=== PATIENT | male | born 1950 | race Caucasian/White ===

== ENCOUNTER → 2023-07-02 06:36 | Outpatient (REF) | payer MEDICARE, OTHER, SELFPAY ==
[2023-07-02 10:22] LABS: INR 2.12; PT 23.6 Sec (11.4-14.6)
== END ==
LOC: HWLAB 06:36
PROVIDERS: ATTENDING PHYSICIAN Internal Medicine Cardiovascular Disease; FAMILY PHYSICIAN Internal Medicine
DX: I48.0 Paroxysmal atrial fibrillation (principal)
CPT/HCPCS: 36415; 85610

== ENCOUNTER → 2023-07-30 06:14 | Outpatient (REF) | payer MEDICARE, OTHER, SELFPAY ==
[2023-07-30 09:21] LABS: INR 2.51
== END ==
LOC: HWLAB 06:14
PROVIDERS: ATTENDING PHYSICIAN Internal Medicine Cardiovascular Disease; FAMILY PHYSICIAN Internal Medicine
DX: I48.0 Paroxysmal atrial fibrillation (principal)
CPT/HCPCS: 36415; 85610

== ENCOUNTER → 2023-08-27 06:22 | Outpatient (REF) | payer MEDICARE, OTHER, SELFPAY ==
[2023-08-27 09:43] LABS: INR 1.95; PT 22.1 Sec (11.4-14.6)
== END ==
LOC: HWLAB 06:22
PROVIDERS: ATTENDING PHYSICIAN Internal Medicine Cardiovascular Disease; FAMILY PHYSICIAN Internal Medicine
DX: I48.0 Paroxysmal atrial fibrillation (principal)
CPT/HCPCS: 36415; 85610

== ENCOUNTER → 2023-09-26 09:27 | Outpatient (REF) | payer MEDICARE, OTHER, SELFPAY | LOC: HWLAB 09:27 | PROVIDERS: ATTENDING PHYSICIAN Internal Medicine Cardiovascular Disease; FAMILY PHYSICIAN Internal Medicine | DX: I48.0 Paroxysmal atrial fibrillation (principal) | CPT/HCPCS: 36415; 85610 ==

== ENCOUNTER → 2023-10-23 06:24 | Outpatient (REF) | payer MEDICARE, OTHER, SELFPAY ==
[2023-10-23 09:20] LABS: PT 28.2 Sec (11.4-14.6)
== END ==
LOC: HWLAB 06:24
PROVIDERS: ATTENDING PHYSICIAN Internal Medicine Cardiovascular Disease; FAMILY PHYSICIAN Internal Medicine
DX: I48.0 Paroxysmal atrial fibrillation (principal)
CPT/HCPCS: 36415; 85610

== ENCOUNTER → 2023-11-20 06:40 | Outpatient (REF) | payer MEDICARE, OTHER, SELFPAY ==
[2023-11-20 09:32] LABS: INR 2.39; PT 26.4 Sec (11.4-14.6)
== END ==
LOC: HWLAB 06:40
PROVIDERS: ATTENDING PHYSICIAN Internal Medicine Cardiovascular Disease; FAMILY PHYSICIAN Internal Medicine
DX: I48.0 Paroxysmal atrial fibrillation (principal)
CPT/HCPCS: 36415; 85610

== ENCOUNTER → 2023-12-19 06:13 | Outpatient (REF) | payer MEDICARE, OTHER, SELFPAY ==
[2023-12-19 10:36] LABS: INR 2.09; PT 23.7 Sec (11.4-14.6)
== END ==
LOC: HWLAB 06:13
PROVIDERS: ATTENDING PHYSICIAN Internal Medicine Cardiovascular Disease; FAMILY PHYSICIAN Internal Medicine
DX: I48.0 Paroxysmal atrial fibrillation (principal)
CPT/HCPCS: 36415; 85610

== ENCOUNTER → 2024-01-15 07:31 | Outpatient (REF) | payer MEDICARE, OTHER, SELFPAY ==
[2024-01-15 09:49] LABS: INR 2.28; PT 25.4 Sec (11.4-14.6)
== END ==
LOC: HWLAB 07:31
PROVIDERS: ATTENDING PHYSICIAN Internal Medicine Cardiovascular Disease; FAMILY PHYSICIAN Internal Medicine
DX: I48.0 Paroxysmal atrial fibrillation (principal)
CPT/HCPCS: 36415; 85610

== ENCOUNTER → 2024-02-12 06:13 | Outpatient (REF) | payer MEDICARE, OTHER, SELFPAY ==
[2024-02-12 09:40] LABS: INR 1.58
== END ==
LOC: HWLAB 06:13
PROVIDERS: ATTENDING PHYSICIAN Internal Medicine Cardiovascular Disease; FAMILY PHYSICIAN Internal Medicine
DX: I48.0 Paroxysmal atrial fibrillation (principal)
CPT/HCPCS: 36415; 85610

== ENCOUNTER → 2024-02-18 09:01 | Outpatient (REF) | payer MEDICARE, OTHER, SELFPAY ==
[2024-02-18 11:46] LABS: INR 1.93; PT 21.9 Sec (11.4-14.6)
== END ==
LOC: HWLAB 09:01
PROVIDERS: ATTENDING PHYSICIAN Internal Medicine Cardiovascular Disease; FAMILY PHYSICIAN Internal Medicine
DX: I48.0 Paroxysmal atrial fibrillation (principal)
CPT/HCPCS: 36415; 85610

== ENCOUNTER → 2024-03-17 07:02 | Outpatient (REF) | payer MEDICARE, OTHER, SELFPAY ==
[2024-03-17 09:56] LABS: Hemoglobin 14.4 g/dL (13.0-18.0); Mean Corp Hgb Conc. 34.3 g/dL (33.0-37.0); Mean Corpuscular Hgb 31.9 pg (27.0-31.0); Mean Corpuscular Volume 93.1 fL (80.0-94.0); Mean Platelet Volume 10.9 fL (7.4-10.4); Platelet Count 191 10^3/uL (130-400); Red Blood Cell Count 4.51 10^6/uL (4.70-6.10); Red Cell Dist. Width 13.2 % (11.5-14.5); White Blood Cell Count 6.1 10^3/uL (4.8-10.8)
[2024-03-17 10:06] LABS: Blood Urea Nitrogen 24 mg/dl (9-20); Calcium 9.2 mg/dl (8.4-10.2); Carbon Dioxide 19 mmol/L (22-30); Chloride 109 mmol/L (98-107); Glucose 124 mg/dl (70-99); HDL Cholesterol 40 mg/dl; LDL Cholesterol, Calculated 37 mg/dl; Potassium 4.7 mmol/L (3.5-5.1); Sodium 142 mmol/L (135-145); Total Cholesterol 108 mg/dl (50-199); Triglyceride 155 mg/dl (10-149); Very Low Density Lipoprotein 31 mg/dl (0-30); eGFR 53.07
[2024-03-17 10:13] LABS: INR 2.08; PT 23.2 Sec (11.4-14.6)
== END ==
LOC: HWLAB 07:02
PROVIDERS: ATTENDING PHYSICIAN Internal Medicine Cardiovascular Disease; FAMILY PHYSICIAN Internal Medicine
DX: I48.0 Paroxysmal atrial fibrillation (principal); E78.2 Mixed hyperlipidemia
CPT/HCPCS: 36415; 80048; 80061; 85027; 85610

== ENCOUNTER → 2024-03-31 07:30 | Outpatient (REF) | payer MEDICARE, OTHER, SELFPAY ==
--- NOTE | 2024-03-31 11:27 | CARDSERVLU ---
Echocardiogram with Lumason completed after protocol screening completed. Allergies verified.
Patent IV site: __L forearm___
IV site flushed with 0.9% NaCl pre and post administration.
Diluted bolus method utilized to enhance visualization of ventricular fernandez.
Total volume given: __3__ mL
Patient tolerated all procedures well without complications.
== END ==
LOC: RCS 07:30
PROVIDERS: ATTENDING PHYSICIAN Internal Medicine Cardiovascular Disease; FAMILY PHYSICIAN Internal Medicine
DX: I48.0 Paroxysmal atrial fibrillation (principal); I25.10 Atherosclerotic heart disease of native coronary artery without angina pectoris; I10 Essential (primary) hypertension
CPT/HCPCS: 93306; Q9950

== ENCOUNTER → 2024-04-15 06:08 | Outpatient (REF) | payer MEDICARE, OTHER, SELFPAY ==
[2024-04-15 09:52] LABS: INR 1.65; PT 20.1 Sec (11.4-14.6)
[2024-04-15 09:55] LABS: ALT (SGPT) 19 U/L (0-50); AST (SGOT) 20 U/L (17-59); Albumin 4.2 g/dl (3.5-5.0); Alkaline Phosphatase 61 U/L (38-126); Blood Urea Nitrogen 23 mg/dl (9-20); Calcium 9.1 mg/dl (8.4-10.2); Carbon Dioxide 20 mmol/L (22-30); Chloride 109 mmol/L (98-107); Glucose 131 mg/dl (70-99); HDL Cholesterol 37 mg/dl; LDL Cholesterol, Calculated 41 mg/dl; Potassium 4.6 mmol/L (3.5-5.1); Sodium 143 mmol/L (135-145); Total Bilirubin 0.9 mg/dl (0.2-1.3); Total Cholesterol 109 mg/dl (50-199); Triglyceride 157 mg/dl (10-149); Very Low Density Lipoprotein 31 mg/dl (0-30); eGFR > 60.00
[2024-04-15 10:15] LABS: PSA, Total - Screen 0.33 ng/ml (0.0-4.0); TSH 1.96 uIU/ml (0.47-4.68)
[2024-04-15 10:17] LABS: Urine Albumin Negative (Neg - Trace); Urine Bilirubin Negative (Negative); Urine Character Very Cloudy (Clear); Urine Color Yellow; Urine Glucose Negative (Negative); Urine Ketone Negative (Negative); Urine Leukocyte Negative (Negative); Urine Nitrite Negative (Negative); Urine Occult Blood Negative (Negative); Urine Specific Gravity 1.025 (<1.030); Urine Urobilinogen Negative (Neg - 1+)
[2024-04-15 11:25] LABS: Microalbumin, Random Urine 3.7 mg/dl (0.6-1.7)
[2024-04-15 11:27] LABS: Microalbumin/creatinine Ratio 19.3 mg/g
[2024-04-15 14:42] LABS: Glycohemoglobin (HgbA1c) 6.3 % (4.0-5.6)
== END ==
LOC: HWLAB 06:08
PROVIDERS: ATTENDING PHYSICIAN Internal Medicine Cardiovascular Disease; FAMILY PHYSICIAN Internal Medicine
DX: I48.0 Paroxysmal atrial fibrillation (principal); E11.9 Type 2 diabetes mellitus without complications; E78.2 Mixed hyperlipidemia; I10 Essential (primary) hypertension; N40.1 Benign prostatic hyperplasia with lower urinary tract symptoms
CPT/HCPCS: 36415; 80053; 80061; 81003; 82043; 82570; 83036; 84443; 85610; G0103

== ENCOUNTER → 2024-04-21 06:29 | Outpatient (REF) | payer MEDICARE, OTHER, SELFPAY ==
[2024-04-21 09:53] LABS: PT 26.2 Sec (11.4-14.6)
== END ==
LOC: HWLAB 06:29
PROVIDERS: ATTENDING PHYSICIAN Internal Medicine Cardiovascular Disease; FAMILY PHYSICIAN Internal Medicine
DX: I48.0 Paroxysmal atrial fibrillation (principal)
CPT/HCPCS: 36415; 85610

== ENCOUNTER → 2024-04-28 06:17 | Outpatient (REF) | payer MEDICARE, OTHER, SELFPAY ==
[2024-04-28 09:53] LABS: INR 2.86; PT 29.9 Sec (11.4-14.6)
== END ==
LOC: HWLAB 06:17
PROVIDERS: ATTENDING PHYSICIAN Internal Medicine Cardiovascular Disease; FAMILY PHYSICIAN Internal Medicine
DX: I48.0 Paroxysmal atrial fibrillation (principal)
CPT/HCPCS: 36415; 85610

== ENCOUNTER → 2024-05-06 06:35 | Outpatient (REF) | payer MEDICARE, OTHER, SELFPAY ==
[2024-05-06 10:00] LABS: INR 2.61; PT 28.4 Sec (11.4-14.6)
== END ==
LOC: HWLAB 06:35
PROVIDERS: ATTENDING PHYSICIAN Internal Medicine Cardiovascular Disease; FAMILY PHYSICIAN Internal Medicine
DX: I48.0 Paroxysmal atrial fibrillation (principal)
CPT/HCPCS: 36415; 85610

== ENCOUNTER → 2024-05-12 06:27 | Outpatient (REF) | payer MEDICARE, OTHER, SELFPAY ==
[2024-05-12 09:38] LABS: INR 2.91; PT 30.3 Sec (11.4-14.6)
== END ==
LOC: HWLAB 06:27
PROVIDERS: ATTENDING PHYSICIAN Internal Medicine Cardiovascular Disease; FAMILY PHYSICIAN Internal Medicine
DX: I48.0 Paroxysmal atrial fibrillation (principal)
CPT/HCPCS: 36415; 85610

== ENCOUNTER 2024-05-15 12:56 | Inpatient (IN) | payer MEDICARE, OTHER, SELFPAY ==
[2024-05-15] VITALS (12 sets, daily range): BP systolic 99–186; BP diastolic 64–104; BMI 38.0
[2024-05-15 06:58] LABS: % Basophils 0.4 % (0-2); % Eosinophils 1.6 % (0-6); % Immature Granulocytes 0.5 % (0-0.5); % Lymphocytes 16.3 % (20.5-51.1); % Monocytes 6.6 % (1.7-9.3); % Neutrophils 74.6 % (42.2-75.2); Absolute Eosinophils 0.1 10^3/uL (0-0.7); Absolute Lymphocytes 1.4 10^3/uL (1.2-3.4); Absolute Monocytes 0.6 10^3/uL (0.1-0.6); Absolute Neutrophils 6.3 10^3/uL (1.4-6.5); Hematocrit 40.6 % (39.0-52.0); Hemoglobin 13.6 g/dL (13.0-18.0); Mean Corp Hgb Conc. 33.5 g/dL (33.0-37.0); Mean Corpuscular Hgb 30.8 pg (27.0-31.0); Mean Corpuscular Volume 92.1 fL (80.0-94.0); Mean Platelet Volume 10.4 fL (7.4-10.4); Nucleated Red Blood Cells % 0 % (-); Platelet Count 188 10^3/uL (130-400); Red Blood Cell Count 4.41 10^6/uL (4.70-6.10); Red Cell Dist. Width 13.1 % (11.5-14.5); White Blood Cell Count 8.4 10^3/uL (4.8-10.8)
[2024-05-15 07:11] LABS: INR 2.65; PT 28.7 Sec (11.4-14.6)
[2024-05-15 07:14] LABS: ALT (SGPT) 22 U/L (0-50); AST (SGOT) 22 U/L (17-59); Alkaline Phosphatase 80 U/L (38-126); Blood Urea Nitrogen 31 mg/dl (9-20); Calcium 8.8 mg/dl (8.4-10.2); Carbon Dioxide 17 mmol/L (22-30); Chloride 107 mmol/L (98-107); Estimated Creatinine Clearance 71 ml/min; Glucose 186 mg/dl (70-99); Sodium 135 mmol/L (135-145); Total Bilirubin 0.7 mg/dl (0.2-1.3); Total Protein 6.7 g/dl (6.3-8.2); eGFR > 60.00
[2024-05-15] MEDS: DILAUDID 0.5 MG IV ×2 (07:25→08:07)
--- NOTE | 2024-05-15 07:27 | ED.GENMED ---
History of Present Illness
General
Chief Complaint: Fall
Source: patient
Time Seen by Provider: 05/15/24 07:12
History of Present Illness
History of Present Illness:
73-year-old male with past medical history of CAD status post previous TN, hypertension, hyperlipidemia, atrial fibrillation, xqa-ykdvtka-ethatlqzh diabetes presenting to the emergency department via EMS after he reportedly fell down at least 1 step
while coming downstairs to begin his morning routine approximately 30 minutes prior to arrival to the emergency department. Patient states that he fell onto his left side and is now having moderate to severe left-sided lateral hip/proximal femur
pain with an inability to ambulate or move the proximal left leg. Patient states that he did not hit his head upon falling. No other extremity related injuries sustained. Patient unsure about his last INR. Prior to falling patient denies any
headache, vision changes, focal weakness or numbness, chest pain, shortness of breath, lightheadedness or dizziness.
Past History
Past History
ED Past Medical History: Arrthythmia (Atrial fibrillation, has been ablated.), CAD, Cancer (Skin cancer), GERD, HTN, Hypercholesterolemia, NIDDM, TN and Other (Diverticulosis, diverticulitis, skin cancer)
ED Past Surgical History: Bowel resection (Sigmoid resection), Cardiac, Cholecystectomy, Orthopedic (Lateral knee arthroscopies, and multiple skin cancer lesions removed) and Other (2 hernia procedures)
Social History
Tobacco: Non-smoker
Alcohol: Occasional
Drug: None
Personal:
Living: with family
Employment: Employed
Family History
Family History: Other (Noncontributory)
Review of Systems
Review of Systems
All Other Systems: ROS reviewed and negative except as documented in HPI and ROS
Phy Exam
Physical Exam
Physical Exam:
GENERAL: Alert , patient appears quite uncomfortable and has significant pain with any attempted movement of the left lower extremity
HEAD: NCAT
EYE: clear conjunctiva
NECK: Supple
ENT: o/p clr, mmm.
CARDIAC: Regular rate and rhythm .
LUNGS: Clear breath sounds bilaterally, no acute respiratory distress, no wheezes/rales/rhonchi, no chest wall ttp
ABDOMEN: Soft, without focal tenderness, no r/g, no cvat
NEUROLOGICAL: Alert and oriented
SKIN: Warm and dry, skin intact.
MUSCULOSKELETAL: LLE: slightly shortened compared to the RLE. No ecchymosis, abrasions/lacerations. No ttp to foot/ankle/lower leg/knee. There is moderate ttp over proximal lateral femur. Unable to assess ROM 2/2 pain. Easily palpable pedal/tibial
pulses b/l
PSYCH: Normal and appropriate interaction.
Scores
Heart Failure Risk
Heart Failure Risk Score: Not Applicable
Heart Score for Chest Pain Patients
STEMI patient?: Not applicable
Withdrawal Assessment of Alcohol
Withdrawal Assessment Completed?: Not applicable
Course
Orders/Labs/Results
Orders:
Orders
05/15/24 06:54
Complete Blood Count/With Diff Urgent
Comprehensive Metabolic Panel Urgent
PT/INR [Prothrombin Time] Urgent
05/15/24 07:22
CT Head W/o Iv Contrast Urgent
Comment:
Reason For Exam: fall, on coumadin
HYDROmorphone [Dilaudid] 0.5 mg IV NOW STA
CR Hip - LT w/wo Pel 2-3 Vw* Urgent
Comment:
Reason For Exam: fall, pain lateral left proximal femur
Include a pelvis x-ray?: Yes
05/15/24 07:23
HYDROmorphone [Dilaudid] 0.5 mg .ROUTE .STK-MED ONE
05/15/24 08:07
HYDROmorphone [Dilaudid] 0.5 mg IV NOW STA
05/15/24 08:45
CT Pelvis W/o Iv Contrast Urgent
Comment:
Reason For Exam: concern for left hip fx
05/15/24 09:13
Fentanyl Citrate/Pf [Sublimaze] 50 mcg IV NOW STA
05/15/24 12:12
Fentanyl Citrate/Pf [Sublimaze] 50 mcg IV NOW STA
Abnormal Lab Results
05/15/24
06:54
RBC 4.41 L 10^6/uL
(4.70-6.10)
Lymphocytes % 16.3 L %
(20.5-51.1)
PT 28.7 H Sec
(11.4-14.6)
Carbon Dioxide 17 L mmol/L
(22-30)
BUN 31 H mg/dl
(9-20)
Glucose 186 H mg/dl
(70-99)
05/15/24 06:54
05/15/24 06:54
Vital Signs
Initial and Last Documented VS:
Initial Vital Signs
Temp Pulse Resp BP Pulse Ox
97.7 F 61 21 147/80 94
05/15/24 06:41 05/15/24 06:41 05/15/24 06:41 05/15/24 06:41 05/15/24 06:41
Last Documented Vital Signs
Temp Pulse Resp BP Pulse Ox
97.7 F 68 21 162/82 96
05/15/24 06:41 05/15/24 07:30 05/15/24 07:30 05/15/24 10:00 05/15/24 10:00
MDM/Problems Addressed
Differential Diagnosis Includes:
accidental fall, hip/pelvic fracture, sprain/contusion, ICH, concussion
MDM/Problems Addressed:
73-year-old male presenting to the emergency department for evaluation via EMS after he fell down at least 1 stair resulting in significant left hip injury/pain. Significant concern for hip or pelvic fracture. Patient did receive 50 mcg of
fentanyl and route to the hospital. Still with 8 or 9 out of 10 pain. Will treat with an additional dose of Dilaudid here. X-ray of the hip and pelvis ordered. Given patient is on Coumadin also ordered a CT of the head. Will check labs
including PT/INR. Anticipate admission.
Chronic conditions affecting care: Arrhythmia
*Radiology
Radiology exam reviewed: preliminary read by ED provider (? impacted femoral neck fx) and radiology read reviewed
*Pulse Oximetry
Patient hypoxic: no
*Website Admin Interpretation
Rate: normal
Rhythm: sinus
*Critical Care Note
Total Time (30-74mins, 75-104mins- exclusive of procedures): Not Applicable
Patient Management
Discussion with other providers: Hospitalist and [employer] Hand
Escalation/DeEscalation of care consider admission/obs:
Patient's x-ray showed a questionable left femoral neck fracture. Given the degree of pain he was in we have high suspicion that there is in fact a fracture. Added on a CT of the pelvis to further evaluate. CT did show an acute impacted femoral
neck fracture. I notified on-call orthopedic surgeon as well as hospitalist team. Hospitalist team to admit with orthopedist in consult.
ED Attending Note
-
Portions of this chart may have been created with voice recognition software.� Occasional wrong word or��sound alike� substitutions may have occurred due to the inherent limitations of voice recognition software.
Discharge Plan
Departure
Patient Disposition: Admit
Date of Disposition: 05/15/24
Time of Disposition: 10:41
Presentation/result/management discussed w/ accepting MD/DO: Hospitalist
Discharge Problem:
Fracture of femoral neck, left
Prescriptions:
No Action
latanoprost 1 DROP drops
1 drp BOTH EYES HS
finasteride 5 MG tablet
5 mg PO DAILY
metformin 500 MG tablet
500 mg PO BID Qty: 0 0RF
tamsulosin 0.4 mg Capsule
0.4 mg PO QPM
atorvastatin 40 mg Tablet
40 mg PO QPM Qty: 30 2RF
warfarin 5 mg Tablet
5 mg PO HS
dorzolamide-timolol 22.3-6.8 mg/mL drops
1 drp LEFT EYE BID
diltiazem HCl [Matzim LA] 180 mg Tablet Extended Release 24 Hr
180 mg PO DAILY
Referrals:
Jorge Floyd DO [Family Provider] -
Interventions
Interventions:
*Risk Screen - Suicide Last Done: 05/15/24 06:41
*General Assessment Last Done: 05/15/24 06:41
*Neglect/Abuse Screening Last Done: 05/15/24 06:41
ED- Fall Risk Assessment Last Done: 05/15/24 06:55
*ED COVID-19 Vaccine History Last Done: 05/15/24 07:16
ED-Musculoskeletal Assessment Last Done: 05/15/24 06:50
ED- Neurological Assessment Last Done: 05/15/24 06:50
ED-Skin Assessment Last Done: 05/15/24 06:50
Discharge Date and Time
Print Language: SIER[place] LEONEAN
[2024-05-15] MEDS: SUBLIMAZE 50 MCG IV ×2 (09:20→12:18)
[2024-05-15] MEDS: MORPHINE SULFATE 2 MG IV ×2 (16:10→23:35)
--- NOTE | 2024-05-15 16:16 | HPS.HSE ---
Addendum entered and electronically signed by Donovan Ceja MD 05/15/24 16:27:
Allergies
Allergy/AdvReac Type Severity Reaction Status Date / Time
No Known Drug Allergies Allergy - Verified 03/16/22 06:22
Home Medications
finasteride 5 mg tablet 5 mg PO DAILY Urinary issue 04/18/20
latanoprost 0.005 % eye drops 1 drp BOTH EYES HS Eye condition 04/18/20
metformin 500 mg tablet 500 mg PO BID Diabetes #0 tabs 01/24/22
tamsulosin 0.4 mg capsule 0.4 mg PO QPM Urinary issue 02/13/22
atorvastatin 40 mg tablet 40 mg PO QPM High cholesterol #30 tabs 02/26/22
warfarin 5 mg tablet 5 mg PO HS Blood clot prevention/tx 07/13/22
diltiazem HCl 180 mg tablet,extended release 24 hr (Matzim LA) 180 mg PO DAILY Arrhythmia 05/15/24
dorzolamide 22.3 mg-timolol 6.8 mg/mL eye drops 1 drp LEFT EYE BID Eye Condition 05/15/24
Original Note:
Family Physician
-
Family Physician: Jorge Floyd
Chief Complaint
-
Fall with subsequent left femoral neck fracture
History of Present Illness
73-year-old male with past medical history of CAD status post CABG, atrial fibrillation, ablated, skin cancer, GERD, hypertension, hyperlipidemia, history diverticulosis, eur-dgtipdk-latdkvuyg diabetes presents after trip and fall walking
downstairs. Patient fell down at least 1 step while walking down the stairs during his morning routine. Patient felt his left side, with subsequent pain to the left hip. Was unable to ambulate thereafter. No head strike. Remembers episode, no
history of lightheadedness, dizziness, loss of consciousness, chest pain. Denies dysuria, hematuria, URI symptoms. Remains afebrile, mildly hypertensive 139/92, pulse 79, respiratory rate 18, sats are 96% on room air. Head CT unremarkable, pelvic
CT with acute nondisplaced fracture of the left femoral neck with mild impaction. Possible acute diverticulitis although asymptomatic. INR noted to be 2.65, Coumadin.
Medical History
Past Medical History
Past Medical History: Reports Arrhythmia (Atrial fibrillation), CAD, CHF, GERD, HTN, Hypercholesterolemia, NIDDM, Renal Failure and Other
Additional Past Medical History:
Small bowel obstructions
Past Surgical History: Reports Cardiac (CABG performed by Dr. Tapia February 21) and Other (Small bowel obstructions)
Social History
Tobacco: Non-smoker
Alcohol: None
Drug: None
Personal:
Living: With Family
Family History
Family History: Not pertinent
Allergies / Home Medications
Allergies reflects when Allergies were last updated in [employer].
Home Medications with original date entered in [employer]
Allergy/Medication List:
none
Allergies
Allergy/AdvReac Type Severity Reaction Status Date / Time
No Known Drug Allergies Allergy - Verified 03/16/22 06:22
Home Medications
finasteride 5 mg tablet 5 mg PO DAILY Urinary issue 04/18/20
latanoprost 0.005 % eye drops 1 drp BOTH EYES HS Eye condition 04/18/20
metformin 500 mg tablet 500 mg PO BID Diabetes #0 tabs 01/24/22
tamsulosin 0.4 mg capsule 0.4 mg PO DAILY Urinary issue 02/13/22
aspirin 81 mg chewable tablet 81 mg PO DAILY Heart disease/condition #30 tabs 02/26/22
atorvastatin 40 mg tablet 40 mg PO QPM High cholesterol #30 tabs 02/26/22
carvedilol 12.5 mg tablet 6.25 mg PO BID 30 days #30 tabs 03/19/22
amiodarone 200 mg tablet (Pacerone) 200 mg PO DAILY Arrhythmia 07/13/22
warfarin 5 mg tablet 2.5 mg PO SUTUTHSA 07/13/22
warfarin 5 mg tablet 5 mg PO MOWEFR 07/13/22
Review of Systems
-
A 12 point ROS was completed and negative except as noted: Yes
Physical Exam
Vital Signs
Vital Signs
Temp Pulse Resp BP Pulse Ox
97.7 F 79 18 179/92 96
05/15/24 06:41 05/15/24 12:22 05/15/24 12:22 05/15/24 15:00 05/15/24 15:00
Physical Exam
General: Well Developed, Well Nourished and No Apparent Distress
HEENT: NormoCephalic
Respiratory: Clear
Cardiac: S1/S2 and Regular Rhythm
GI: Soft and Non Tender
Musculoskeletal: No Clubbing and Other (slightly shortened compared to the RLE. No ecchymosis, abrasions/lacerations. No ttp to foot/ankle/lower leg/knee. There is moderate ttp over proximal lateral femur. ; B/l pulses present)
Skin: Warm
Neuro: Awake, Alert, Oriented and AO x 3
Hematologic/Lymphatic: No Lymphadenopathy
Psych: Calm
Laboratory Results
-
05/15/24 06:54
05/15/24 06:54
Laboratory Results
PT 28.7 Sec (11.4-14.6) H 05/15/24 06:54
INR 2.65 05/15/24 06:54
Total Bilirubin 0.7 mg/dl (0.2-1.3) 05/15/24 06:54
AST 22 U/L (17-59) 05/15/24 06:54
ALT 22 U/L (0-50) 05/15/24 06:54
Alkaline Phosphatase 80 U/L (38-126) 05/15/24 06:54
Data Reviewed
-
Diagnostic Radiology: Report Reviewed by me
CT Scan: Report Reviewed by me
Lab Data: Labs Reviewed by me
Impression/Plan
-
IMPRESSION:
73-year-old male with past medical history of CAD status post CABG, atrial fibrillation, ablated, skin cancer, GERD, hypertension, hyperlipidemia, history diverticulosis, aml-nqtvyqt-cbqbbizfo diabetes presents after trip and fall walking downstairs
resulting in acute nondisplaced fracture of the left femoral neck with mild impaction.
PLAN:
#Acute nondisplaced fracture of the left femoral neck with mild impaction.
-Ortho consulted, plan for OR within the next 24 to 48 hours depending on INR
-remain nonweightbearing to her right lower extremity
-Continue with ice and strict elevation for edema control
- Continue with pain management as needed.
-Hold on INR reversal agent - monitor INR closely
##Paroxysmal atrial fibrillation
-Continue diltiazem
� Hold on warfarin
� Monitor INR, attempt to avoid INR reversal agent at this time and hopeful for INR goal less than 1.7 within 24 to 48 hours
CAD s/p CABG 02/21/22:
Resume statin, CCB
-not on ASA
Type 2 diabetes mellitus
-Hold metformin
-Sliding scale coverage
BPH
-Continue finasteride/tamsulosin
Hyperlipidemia
-Continue atorvastatin
DVT prophylaxis SCDs; INR >2
Full CODE STATUS
[2024-05-15] MEDS: TYLENOL 650 MG PO ×3 (18:04→23:35)
[2024-05-15] MEDS: FLOMAX 0.4 MG PO (18:05)
[2024-05-15] MEDS: LIPITOR 40 MG PO (18:05)
[2024-05-15] MEDS: ROXICODONE 5 MG PO (18:05)
[2024-05-15] MEDS: NOVOLOG FLEXPEN-LOW RESISTANCE SC (19:30)
[2024-05-15] MEDS: COSOPT EYE DROPS 1 DROP LEFT EYE (20:00)
[2024-05-15] MEDS: COLACE PO (20:07)
[2024-05-15] MEDS: SENOKOT PO (20:07)
[2024-05-15] MEDS: XALATAN OPHTHALMIC SOLUTION 1 DROP BOTH EYES (23:35)
[2024-05-16] MEDS: MORPHINE SULFATE 2 MG IV ×2 (01:38→07:59)
[2024-05-16] MEDS: FLUSH (NSS) 2 FLUSH IV (01:38)
[2024-05-16 03:25] VITALS: BP 142/84
[2024-05-16] MEDS: TYLENOL PO (04:55)
[2024-05-16 05:33] LABS: Hematocrit 39.1 % (39.0-52.0); Hemoglobin 12.9 g/dL (13.0-18.0); Mean Corpuscular Hgb 30.5 pg (27.0-31.0); Mean Corpuscular Volume 92.4 fL (80.0-94.0); Mean Platelet Volume 10.7 fL (7.4-10.4); Platelet Count 159 10^3/uL (130-400); Red Blood Cell Count 4.23 10^6/uL (4.70-6.10); Red Cell Dist. Width 13.2 % (11.5-14.5); White Blood Cell Count 6.6 10^3/uL (4.8-10.8)
[2024-05-16 05:45] LABS: INR 2.84; PT 29.7 Sec (11.4-14.6)
[2024-05-16 06:02] LABS: Blood Urea Nitrogen 29 mg/dl (9-20); Calcium 8.4 mg/dl (8.4-10.2); Carbon Dioxide 22 mmol/L (22-30); Chloride 102 mmol/L (98-107); Estimated Creatinine Clearance 61 ml/min; Glucose 110 mg/dl (70-99); Potassium 4.2 mmol/L (3.5-5.1); Sodium 135 mmol/L (135-145); eGFR 53.07
[2024-05-16 07:15] VITALS: BP 144/60
[2024-05-16] MEDS: SENOKOT 17.2 MG PO ×2 (07:58→21:13)
[2024-05-16] MEDS: CARDIZEM CD 180 MG PO (07:58)
[2024-05-16] MEDS: COLACE 100 MG PO ×2 (07:58→21:13)
[2024-05-16] MEDS: TYLENOL 650 MG PO ×4 (07:58→21:13)
[2024-05-16] MEDS: ROXICODONE 5 MG PO (07:59)
[2024-05-16] MEDS: PROSCAR 5 MG PO (07:59)
[2024-05-16 08:00] VITALS: BMI 38.0
[2024-05-16] MEDS: COSOPT EYE DROPS 1 DROP LEFT EYE ×2 (08:00→21:13)
[2024-05-16 08:09] LABS: Glucose - Point of Care 127 mg/dl (70-99)
[2024-05-16] MEDS: NOVOLOG FLEXPEN-LOW RESISTANCE SC ×3 (08:09→16:37)
[2024-05-16] MEDS: LR 1000 IV (09:31)
--- NOTE | 2024-05-16 10:24 | CM ---
Patient seen at bedside. Patient states that he lives with his in a split level home. Patient stated that he has no DME at home and that he has a PCP Dr. Patel and he uses the [facility] in [place] for pharmacy needs. Patient states his INR is
too high for surgery and he is waiting. Patient states he is very independent prior to admission. Patient plan is for home with who is a nurse when medically appropriate. CM will continue to follow for discharge planning needs.
Plan; home with no needs vs home with VN vs SNF pending functional assessment closer to discharge
[2024-05-16 11:10] VITALS: BP 117/66
[2024-05-16 11:56] LABS: Glucose - Point of Care 115 mg/dl (70-99)
--- NOTE | 2024-05-16 12:10 | CON.ORTHO ---
Consultation - Orthopedics
History
HPI: 73-year-old male multiple medical comorbidities presented to the emergency department status post fall with complaints of left hip pain and inability to bear weight. Subsequently diagnosed with impacted left femoral neck fracture. He was
admitted to the hospitalist service. Orthopedics is consulted for further evaluation and treatment. This morning patient localizes pain to the left groin. Pain is made worse with direct palpation affected area, motion of the left hip as well as
attempted ambulation. Pain improves at rest. Patient ports that he fell down the last step or 2 while at home onto his left hip yesterday morning. He does report that he lives at home with his . Does not use any regular aids for ambulatory
assistance.
Allergies / Home Medications
Past medical history: A-fib on Coumadin, status post ablation, coronary artery disease, skin cancer, GERD, hypertension, hyper cholesterolemia, yvu-ovqejui-jsopnvvbd diabetes, history of VA with stents, diverticulosis
Past surgical history: Bowel resection entheses sigmoid resection: Cardiac ablation/stents, cholecystectomy, right total knee arthroplasty, multiple hernia procedures
Social history: , lives at home, non-smoker
Family history: Not pertinent
Allergy/AdvReac Type Severity Reaction Status Date / Time
No Known Drug Allergies Allergy - Verified 03/16/22 06:22
�Medication �Instructions �Recorded
finasteride 5 mg tablet 5 mg PO DAILY Urinary issue 04/18/20
latanoprost 0.005 % eye drops 1 drp BOTH EYES HS Eye condition 04/18/20
metformin 500 mg tablet 500 mg PO BID Diabetes #0 tabs 01/24/22
tamsulosin 0.4 mg capsule 0.4 mg PO QPM Urinary issue 02/13/22
atorvastatin 40 mg tablet 40 mg PO QPM High cholesterol #30 02/26/22
tabs
warfarin 5 mg tablet 5 mg PO HS Blood clot prevention/tx 07/13/22
diltiazem HCl 180 mg 180 mg PO DAILY Arrhythmia 05/15/24
tablet,extended release 24 hr
(Matzim LA)
dorzolamide 22.3 mg-timolol 6.8 1 drp LEFT EYE BID Eye Condition 05/15/24
mg/mL eye drops
Vital Signs / Lab Results
Temp Pulse Resp BP Pulse Ox
98.0 F 66 16 117/66 95
05/16/24 11:10 05/16/24 11:10 05/16/24 11:10 05/16/24 11:10 05/16/24 11:10
05/16/24 04:21
05/16/24 04:21
10 point review systems reviewed and negative unless otherwise stated
General: Pleasant, no acute distress at rest
Musculoskeletal left lower extremity
Skin intact, no erythema or ecchymotic staining
Left extremity without significant shortening
Tenderness palpation of the groin and lateral trochanteric flare
No ipsilateral palpable knee effusion
Positive EHL, FHL, ankle dorsiflexion, plantarflexion
No other areas of bony tenderness palpation crepitation long bones or joints
Diagnostic studies
X-rays left hip CT scan left hip independently viewed by myself. There is evidence of impacted left femoral neck fracture. Plain films did not show significant displacement. CT scan does show some mild apex anterior angulation
Assessment / Plan
73-year-old male multiple medical comorbidities on Coumadin with elevated INR status post fall with left femoral neck fracture. Had a very long detailed discussion with the patient regarding diagnosis and treatment options. We did specifically
discussed the fracture pattern. Explained to him that he has impacted slightly angulated femoral neck fracture. I explained to him that there are multiple options in terms of treatment. We discussed specifically both fixation and arthroplasty
options. I did explain to him that with some mild angulation would likely have about a 20% failure rate with cannulated screw fixation but the vantage of this would be to obviously keep his nez perce hip. We also discussed arthroplasty options likely
hemiarthroplasty given his medical comorbidities as a more definitive option but also larger surgery. We also discussed conversion to arthroplasty should fixation fail. He like to give this some thought discussed with his who is a nurse. I
will plan to touch base with him later today. Discussed with medicine his elevated INR and plan will be to hopefully reverse this. Will prophylactically keep patient n.p.o. at midnight and reassess INR in the morning. If appropriate can proceed
to the OR tomorrow. Will discuss definitive treatment option with patient later today.
N.p.o. midnight
INR reversal
Medical management per primary team
Plan to discuss with patient later today treatment.
[2024-05-16] MEDS: MEPHYTON 2.5 MG PO (13:44)
[2024-05-16 13:54] LABS: Hematocrit 38.5 % (39.0-52.0); Hemoglobin 12.8 g/dL (13.0-18.0); Mean Corp Hgb Conc. 33.2 g/dL (33.0-37.0); Mean Corpuscular Hgb 30.8 pg (27.0-31.0); Mean Corpuscular Volume 92.5 fL (80.0-94.0); Mean Platelet Volume 10.6 fL (7.4-10.4); Platelet Count 157 10^3/uL (130-400); Red Blood Cell Count 4.16 10^6/uL (4.70-6.10); Red Cell Dist. Width 13.1 % (11.5-14.5); White Blood Cell Count 6.1 10^3/uL (4.8-10.8)
--- NOTE | 2024-05-16 14:02 | W.PN.HOSP.TC ---
Today's Communication/Plan
-
Vit K
bridge to Hep ggt
OR tentatively oscar
Assessment / Plan
Assessment / Plan
Physical Exam
General: Well Developed, Well Nourished and No Apparent Distress
HEENT: NormoCephalic
Respiratory: Clear
Cardiac: S1/S2 and Regular Rhythm
GI: Soft and Non Tender
Musculoskeletal: No Clubbing and Other (slightly shortened compared to the RLE. No ecchymosis, abrasions/lacerations. No ttp to foot/ankle/lower leg/knee. There is moderate ttp over proximal lateral femur. ; B/l pulses present)
Skin: Warm
Neuro: Awake, Alert, Oriented and AO x 3
Hematologic/Lymphatic: No Lymphadenopathy
Psych: Calm
73-year-old male with past medical history of CAD status post CABG, atrial fibrillation, ablated, skin cancer, GERD, hypertension, hyperlipidemia, history diverticulosis, yxy-mmmbevd-leenigchc diabetes presents after trip and fall walking downstairs
resulting in acute nondisplaced fracture of the left femoral neck with mild impaction.
PLAN:
#Acute nondisplaced fracture of the left femoral neck with mild impaction.
-Ortho consulted, plan for OR within the next 24 to 48 hours depending on INR
-remain nonweightbearing to her right lower extremity
-Continue with ice and strict elevation for edema control
- Continue with pain management as needed.
-Awaiting inr reversal
##Paroxysmal atrial fibrillation
-Continue diltiazem
� Hold on warfarin
� Monitor INR
- 2.5mg Vit K today - bridge with hep ggt
CAD s/p CABG 02/21/22:
Resume statin, CCB
-not on ASA
Type 2 diabetes mellitus
-Hold metformin
-Sliding scale coverage
BPH
-Continue finasteride/tamsulosin
Hyperlipidemia
-Continue atorvastatin
DVT prophylaxis SCDs; hep ggt
Full CODE STATUS
Anticipated Discharge: > 48 hours
Subjective/Interval History
-
Date of Service: May 16, 2024
No acute events
Objective Data
-
Labs:
Laboratory Results
05/16/24 05/16/24
04:21 13:20
WBC 6.6 6.1
Hgb 12.9 L 12.8 L
Hct 39.1 38.5 L
Plt Count 159 157
PT 29.7 H
INR 2.84
APTT Pending
Sodium 135
Potassium 4.2
Chloride 102
Carbon Dioxide 22
BUN 29 H
Creatinine 1.4 H
Glucose 110 H
Calcium 8.4
Vital Signs:
Vital Signs
Temp Pulse Resp BP Pulse Ox
98.0 F 66 16 117/66 95
05/16/24 11:10 05/16/24 11:10 05/16/24 11:10 05/16/24 11:10 05/16/24 11:10
I&O
05/15/24 05/16/24 05/17/24
06:59 06:59 06:59
Intake Total 960 / 960
Output Total 950 / 950
Balance
Review of Systems
-
History Source: Patient
All other systems: Not reviewed unless documented
Data Reviewed
-
Diagnostic Radiology: Report Reviewed by me
Labs: Labs Reviewed by me
[2024-05-16 15:15] VITALS: BP 149/56
[2024-05-16] MEDS: LIPITOR 40 MG PO (16:30)
[2024-05-16] MEDS: FLOMAX 0.4 MG PO (16:30)
[2024-05-16 16:33] LABS: Glucose - Point of Care 116 mg/dl (70-99)
[2024-05-16] MEDS: HEPARIN 25000 UNITS/250 ML IV (17:41)
[2024-05-16 19:10] VITALS: BP 179/68
--- NOTE | 2024-05-16 19:46 | W.PN.UPDATE ---
Update Note
Progress Note Update
Spoke to patient at length regarding fixation versus arthroplasty options. I did speak with his on the telephone as well who is an RN. After lengthy discussion, we mutually elected proceed with a left hip hemiarthroplasty. Verbal consent was
obtained we will plan obtain written informed consent prior to procedure. Will check INR in the morning. If 1.7 or lower, we will proceed to the OR. If it remains elevated, we will reassess the following day. Please keep n.p.o. at midnight for
potential OR tomorrow.
[2024-05-16 21:43] LABS: Glucose - Point of Care 144 mg/dl (70-99)
[2024-05-16] MEDS: XALATAN OPHTHALMIC SOLUTION 1 DROP BOTH EYES (22:02)
[2024-05-16] MEDS: MELATONIN 5 MG PO (22:03)
[2024-05-16 23:33] VITALS: BP 141/57
[2024-05-17] VITALS (15 sets, daily range): BP systolic 100–185; BP diastolic 45–100
[2024-05-17 00:25] LABS: APTT 71.4 Sec (23.4-35.0)
[2024-05-17] MEDS: MORPHINE SULFATE 2 MG IV (00:51)
[2024-05-17] MEDS: LIORESAL 2.5 MG PO (01:39)
[2024-05-17] MEDS: TYLENOL 650 MG PO ×5 (01:39→20:43)
[2024-05-17] MEDS: ROXICODONE 5 MG PO (05:34)
[2024-05-17 06:32] LABS: Hematocrit 39.3 % (39.0-52.0); Mean Corp Hgb Conc. 33.1 g/dL (33.0-37.0); Mean Corpuscular Hgb 30.8 pg (27.0-31.0); Mean Corpuscular Volume 93.1 fL (80.0-94.0); Mean Platelet Volume 10.5 fL (7.4-10.4); Platelet Count 150 10^3/uL (130-400); Red Blood Cell Count 4.22 10^6/uL (4.70-6.10); Red Cell Dist. Width 12.9 % (11.5-14.5); White Blood Cell Count 5.5 10^3/uL (4.8-10.8)
[2024-05-17 06:49] LABS: INR 1.56; PT 18.9 Sec (11.4-14.6)
[2024-05-17 06:51] LABS: APTT 80.6 Sec (23.4-35.0)
[2024-05-17 07:00] LABS: Blood Urea Nitrogen 26 mg/dl (9-20); Calcium 8.3 mg/dl (8.4-10.2); Carbon Dioxide 22 mmol/L (22-30); Chloride 104 mmol/L (98-107); Estimated Creatinine Clearance 71 ml/min; Glucose 120 mg/dl (70-99); Sodium 135 mmol/L (135-145); eGFR > 60.00
[2024-05-17 07:21] LABS: Glucose - Point of Care 118 mg/dl (70-99)
[2024-05-17] MEDS: CARDIZEM CD PO (08:37)
[2024-05-17] MEDS: NOVOLOG FLEXPEN-LOW RESISTANCE SC ×3 (09:28→17:40)
[2024-05-17] MEDS: COSOPT EYE DROPS 1 DROP LEFT EYE ×2 (09:29→20:44)
[2024-05-17] MEDS: PROSCAR 5 MG PO (09:30)
[2024-05-17] MEDS: SENOKOT 17.2 MG PO ×2 (09:31→20:44)
[2024-05-17] MEDS: LR 1000 IV (09:31)
[2024-05-17] MEDS: COLACE 100 MG PO ×2 (09:31→20:44)
--- NOTE | 2024-05-17 10:54 | CM ---
Addendum entered by Mahogany Quezada 05/17/24 15:59:
referral sent to [facility], spoke with liaison and she has tentative bed. Will need to review to confirm ability to accept. No PT/OT assessment as of yet will need to send updated clinicals follow PT assessment. CM will continue to follow for
discharge planning needs.
Plan; SNF; [facility] pending confirmation of acceptance.
Addendum entered by Mahogany Quezada 05/17/24 15:49:
pending PT/OT assessment. CM spoke with patient , and she stated that [facility] is patient first choice. 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 Family plan is for patient to go to SNF. CM will send referral via all
scripts and await response.
Plan; SNF pending response from [facility].
Original Note:
Patient for OR today. Patient will need further assessment to determine level of care need following surgery. CM will continue to follow for discharge planning needs.
Plan; SNF vs home with VN pending assessment following surgery.
[2024-05-17 11:36] LABS: Glucose - Point of Care 102 mg/dl (70-99)
--- NOTE | 2024-05-17 12:27 | W.PN.HOSP.TC ---
Today's Communication/Plan
-
OR today
Restart anticoagulation once cleared by surgery
Assessment / Plan
Assessment / Plan
Physical Exam
General: Well Developed, Well Nourished and No Apparent Distress
HEENT: NormoCephalic
Respiratory: Clear
Cardiac: S1/S2 and Regular Rhythm
GI: Soft and Non Tender
Musculoskeletal: No Clubbing and Other (slightly shortened compared to the RLE. No ecchymosis, abrasions/lacerations. No ttp to foot/ankle/lower leg/knee. There is moderate ttp over proximal lateral femur. ; B/l pulses present)
Skin: Warm
Neuro: Awake, Alert, Oriented and AO x 3
Hematologic/Lymphatic: No Lymphadenopathy
Psych: Calm
73-year-old male with past medical history of CAD status post CABG, atrial fibrillation, ablated, skin cancer, GERD, hypertension, hyperlipidemia, history diverticulosis, fhz-uzmexod-mpoevokww diabetes presents after trip and fall walking downstairs
resulting in acute nondisplaced fracture of the left femoral neck with mild impaction.
PLAN:
#Acute nondisplaced fracture of the left femoral neck with mild impaction.
-Ortho consulted, plan for OR today that INR is <1.7
-remain nonweightbearing to her right lower extremity
-Continue with ice and strict elevation for edema control
- Continue with pain management as needed.
##Paroxysmal atrial fibrillation
-Continue diltiazem
� Hold on warfarin
� Monitor INR
- 2.5mg Vit K 05/16 - bridge with hep ggt pre op, resume anticoagulation once cleared by ortho
CAD s/p CABG 02/21/22:
Resume statin, CCB
-not on ASA
Type 2 diabetes mellitus
-Hold metformin
-Sliding scale coverage
BPH
-Continue finasteride/tamsulosin
Hyperlipidemia
-Continue atorvastatin
DVT prophylaxis SCDs;
Full CODE STATUS
Anticipated Discharge: 24 - 48 hours
Subjective/Interval History
-
Date of Service: May 17, 2024
no acute events, or today
Objective Data
-
Labs:
Laboratory Results
05/17/24 05/17/24 05/17/24
00:00 06:19 12:00
WBC 5.5
Hgb 13.0
Hct 39.3
Plt Count 150
PT 18.9 H
INR 1.56
APTT 71.4 H 80.6 H Cancelled
Sodium 135
Potassium 4.0
Chloride 104
Carbon Dioxide 22
BUN 26 H
Creatinine 1.2
Glucose 120 H
Calcium 8.3 L
Vital Signs:
Vital Signs
Temp Pulse Resp BP Pulse Ox
97.9 F 94 16 119/57 95
05/17/24 11:14 05/17/24 11:14 05/17/24 11:14 05/17/24 11:14 05/17/24 11:14
I&O
05/16/24 05/17/24 05/18/24
06:59 06:59 06:59
Intake Total 960 / 960 2520 / 2520
Output Total 950 / 950 1295 / 1295
Balance 10 1225 / 1225
Review of Systems
-
History Source: Patient
All other systems: Not reviewed unless documented
Physical Exam
-
General: No Apparent Distress
HEENT: PERRLA
Respiratory: Clear to Auscultation; Negative Wheezes
Cardiac: Regular Rhythm and S1/S2
GI: Soft and Nontender
Musculoskeletal: No Edema
Skin: Warm and Dry; Negative Rash
Neuro: AO x 3
Psych: Calm
Data Reviewed
-
Diagnostic Radiology: Report Reviewed by me
CT Scan: Report Reviewed by me
Labs: Labs Reviewed by me
[2024-05-17 13:11] LABS: Glucose - Point of Care 96 mg/dl (70-99)
[2024-05-17] MEDS: TYLENOL PO (15:42)
--- NOTE | 2024-05-17 15:43 | OR.RPT ---
Operative Report
Operative Report
Anesthesia Type:
General
Operative Indications:
Left femoral neck fracture
Operative Findings :
Same
Complications:
None
Implants:
Angelica Avenir left hip hemiarthroplasty, size 6 stem, size 55 bipolar shell, 28+3.5 head
Procedure and Technique:
Left hip hemiarthroplasty
INDICATIONS FOR PROCEDURE:
73-year-old male with multiple medical comorbidities on Coumadin presented to the ER status post fall at home with minimally displaced left femoral neck fracture. He was admitted to the hospital and orthopedics was consulted. I had a long
discussion with both him and his who is a retired RN. We discussed both fixation and arthroplasty options. Given the risk for reoperation with fixation, they opted for arthroplasty. We discussed risks benefits and alternatives. We discussed
the usual expected perioperative and postoperative course. After discussion written informed consent was obtained for left hip hemiarthroplasty.
OPERATIVE PROCEDURE:
Patient was seen and identified in the preoperative holding area. Operative extremity was marked. Patient was taken to the operating room and anesthesia was administered by the anesthesia providers. Patient was then placed in a lateral decubitus
position with the use of a presley bag. All bony prominences were well-padded. Operative extremity was then prepped and draped in normal sterile fashion. Timeout was performed again identifying the correct operative extremity. Preoperative
antibiotics were addressed. Standard posterior approach to the hip was taken. Sharp dissection was carried through skin and subcutaneous tissues and deep fascial layer. Hemostasis was achieved with electrocautery. Hip was then placed on slight
internal rotation to place the external rotators on stretch. Piriformis was identified and a Cobra retractor was then placed under the gluteus medius and minimus. Piriformis and short external rotators were taken down and tagged. A T capsulotomy
was then performed and capsular leaflets were also tagged. The fracture was identified and a freshen up cut was performed. The femoral head was then removed and sized. Appropriately sized ball on a stick was then placed into the acetabulum and
felt to have appropriate suction fit. Attention was then turned to the proximal femur where soft tissue remnants were removed from the piriformis fossa. Remnant neck was removed with the use of a cookie cutter. Canal finder was then placed in
addition to lateralizing reamer. Stepwise broaching was then performed to the appropriate size. Implants were then trialed and found to have appropriate stability in deep flexion, internal rotation, shuck and adduction. Final noncemented femoral
stem was placed in appropriate version. The head and bipolar shell were then placed and patient was taken through range of motion again found to be quite stable. Leg lengths are equal. Satisfied with the extent of surgery, wound was copiously
irrigated with normal saline solution and a Betadine solution. The capsule, piriformis and short external rotators were then repaired through osseous tunnels into the greater trochanter. Wound was then closed in a layered fashion utilizing 0
Vicryl for deep fascial layer, 2-0 Vicryl for subcutaneous layer and christina for skin. Aquacel dressing was then placed. Anesthesia was reversed and patient was taken to PACU in a stable condition. Postoperative plans will include weightbearing
to the patient's tolerance in the operative extremity. Posterior hip precautions will be advised. Recommend DVT prophylaxis consisting of renally dosed Lovenox daily for 28 days unless patient is already on baseline anticoagulation. Will plan to
see patient back in 2 weeks for postoperative evaluation with planned removal of christina.
Disposition:
PACU, stable condition
[2024-05-17 15:49] LABS: Glucose - Point of Care 118 mg/dl (70-99)
[2024-05-17] MEDS: DILAUDID 0.5 MG IV (16:20)
[2024-05-17] MEDS: FLOMAX 0.4 MG PO (17:38)
[2024-05-17] MEDS: LIPITOR 40 MG PO (17:38)
[2024-05-17] MEDS: NSS 1000 IV (17:39)
--- NOTE | 2024-05-17 18:32 | PTCARENOTE ---
returned from PACU L hemiplasty ,with abductor pillow and foot pumps. pt asking repetitively to get OOB, still drowsy tried to advise otherwise, said had to urinate. 3 to get to commode did not urinate, but incisions leaking mid bandage, applied
pressure then ice when bag in bed is c/o of groin pain, placed ice. dinner ordered. Doppler rt pedal
[2024-05-17 21:07] LABS: Glucose - Point of Care 172 mg/dl (70-99)
[2024-05-17] MEDS: XALATAN OPHTHALMIC SOLUTION 1 DROP BOTH EYES (22:22)
[2024-05-17] MEDS: ANCEF 5 IV (22:22)
[2024-05-18] VITALS (8 sets, daily range): BP systolic 98–151; BP diastolic 55–96; PULSE 69; O2SAT 96
[2024-05-18] MEDS: TYLENOL PO ×2 (00:50→13:19)
[2024-05-18] MEDS: ROXICODONE 5 MG PO (03:25)
[2024-05-18] MEDS: TYLENOL 650 MG PO ×5 (03:25→23:08)
--- NOTE | 2024-05-18 03:30 | PTCARENOTE ---
At start of shift pt Left hip dressing had moderate drainage. Pt dressing leaking out of side of dressing. LINUX SERVER ADMINISTRATOR Eunice notified and advised to reinforce dressing.
[2024-05-18] MEDS: NSS 1000 IV (05:36)
[2024-05-18] MEDS: ANCEF 5 IV (05:48)
[2024-05-18 07:05] LABS: Hematocrit 34.8 % (39.0-52.0); Hemoglobin 11.8 g/dL (13.0-18.0); Mean Corp Hgb Conc. 33.9 g/dL (33.0-37.0); Mean Corpuscular Volume 91.3 fL (80.0-94.0); Mean Platelet Volume 11.2 fL (7.4-10.4); Platelet Count 173 10^3/uL (130-400); Red Blood Cell Count 3.81 10^6/uL (4.70-6.10); White Blood Cell Count 6.8 10^3/uL (4.8-10.8)
--- NOTE | 2024-05-18 07:19 | W.PN.ORTHO ---
Today's Communication / Plan
-
73-year-old male postop day 1 status post left hip hemiarthroplasty doing well
Weightbearing as tolerated left lower extremity
PT OT
Posterior hip precautions
Pain control
DVT prophylaxis: Recommend Lovenox renally dosed x 28 days daily
Medical management per primary team
Plan follow-up with myself outpatient in 2 to 3 weeks for repeat evaluation with planned removal of christina.
Subjective
.
.:
Patient resting comfortably in bed. Patient noted some drainage overnight left hip dressing..
Vital Signs and Labs
.
Vital Signs and Labs:
Lab Results
05/18/24 05:41
Temp Pulse Resp BP Pulse Ox
97.9 F 63 18 151/80 97
05/18/24 02:39 05/18/24 02:39 05/18/24 02:39 05/18/24 02:39 05/18/24 02:39
PT 18.9 Sec (11.4-14.6) H 05/17/24 06:19
INR 1.56 05/17/24 06:19
Physical Exam
-
Musculoskeletal left lower extremity
Moderate bloody drainage dressing
Moderate swelling thigh
No palpable ipsilateral knee effusion
Positive EHL, FHL, ankle dorsiflexion, plantarflexion
Approximately equal leg lengths
Brisk cap refill
[2024-05-18 07:23] LABS: Blood Urea Nitrogen 28 mg/dl (9-20); Carbon Dioxide 21 mmol/L (22-30); Chloride 105 mmol/L (98-107); Estimated Creatinine Clearance 78 ml/min; Glucose 148 mg/dl (70-99); Potassium 4.6 mmol/L (3.5-5.1); Sodium 134 mmol/L (135-145); eGFR > 60.00
[2024-05-18 07:47] LABS: INR 1.42; PT 17.6 Sec (11.4-14.6)
[2024-05-18 08:05] LABS: Glucose - Point of Care 144 mg/dl (70-99)
[2024-05-18] MEDS: NOVOLOG FLEXPEN-LOW RESISTANCE SC (08:52)
[2024-05-18] MEDS: CARDIZEM CD 180 MG PO (09:59)
[2024-05-18] MEDS: COSOPT EYE DROPS 1 DROP LEFT EYE ×2 (09:59→20:01)
[2024-05-18] MEDS: COLACE 100 MG PO ×2 (09:59→20:01)
[2024-05-18] MEDS: PROSCAR 5 MG PO (09:59)
[2024-05-18] MEDS: SENOKOT 17.2 MG PO ×2 (09:59→20:01)
[2024-05-18] MEDS: ROXICODONE 10 MG PO ×2 (10:07→15:20)
--- NOTE | 2024-05-18 10:12 | W.PN.HOSP.TC ---
Today's Communication/Plan
-
ok to use bathroom with PT
Resume Coumadin now
INR in AM
Assessment / Plan
Assessment / Plan
Physical Exam
General: Well Developed, Well Nourished and No Apparent Distress
HEENT: NormoCephalic
Respiratory: Clear
Cardiac: S1/S2 and Regular Rhythm
GI: Soft and Non Tender
Musculoskeletal: No Clubbing and Other (slightly shortened compared to the RLE. No ecchymosis, abrasions/lacerations. No ttp to foot/ankle/lower leg/knee. There is moderate ttp over proximal lateral femur. ; B/l pulses present)
Skin: Warm
Neuro: Awake, Alert, Oriented and AO x 3
Hematologic/Lymphatic: No Lymphadenopathy
Psych: Calm
73-year-old male with past medical history of CAD status post CABG, atrial fibrillation, ablated, skin cancer, GERD, hypertension, hyperlipidemia, history diverticulosis, tzj-rdiqcgz-yrujsjlhu diabetes presents after trip and fall walking downstairs
resulting in acute nondisplaced fracture of the left femoral neck with mild impaction.
PLAN:
#Acute nondisplaced fracture of the left femoral neck with mild impaction s/p Left hip hemiarthroplasty by Dr. Michaels on 05/17.
No significant pain, would like to do PT and use bathroom, ok to do so with PT help
Weightbearing as tolerated left lower extremity
Posterior hip precautions
Pain control
Per ortho: DVT prophylaxis: ok to start AC, we will resume Coumadin
Per ortho: Plan follow-up with myself outpatient in 2 to 3 weeks for repeat evaluation with planned removal of christina.
##Paroxysmal atrial fibrillation
-Continue diltiazem
� Monitor INR, today is 1.4, will resume Coumadin
# ROHIT, resolving
# Mild acute blood loss anemia
Monitor
# CAD s/p CABG 02/21/22:
Resume statin, CCB
-not on ASA
Type 2 diabetes mellitus
-resume metformin
-Sliding scale coverage
# Mild hyponatremia, no confusion
# Obesity
BMI 38
# BPH
-Continue finasteride/tamsulosin
Hyperlipidemia
-Continue atorvastatin
DVT prophylaxis SCDs;
Full CODE STATUS
Total time spent to see the patient, examine the patient, review data and lab results, discuss the treatment plan with patient, nursing staff around 55 minutes
Anticipated Discharge: Within 24 hours
Subjective/Interval History
-
Date of Service: May 18, 2024
No chest pain
No sob
Objective Data
-
Labs:
Laboratory Results
05/18/24
05:41
WBC 6.8
Hgb 11.8 L
Hct 34.8 L
Plt Count 173
PT 17.6 H
INR 1.42
Sodium 134 L
Potassium 4.6
Chloride 105
Carbon Dioxide 21 L
BUN 28 H
Creatinine 1.1
Glucose 148 H
Calcium 8.0 L
Vital Signs:
Vital Signs
Temp Pulse Resp BP Pulse Ox
97.9 F 63 18 151/80 97
05/18/24 02:39 05/18/24 02:39 05/18/24 02:39 05/18/24 02:39 05/18/24 02:39
I&O
05/17/24 05/18/24 05/19/24
06:59 06:59 06:59
Intake Total 2520 / 2520 1680 / 1680
Output Total 1295 / 1295 1050 / 1050
Balance 1225 / 1225 630 / 630
[2024-05-18 11:12] LABS: Glucose - Point of Care 176 mg/dl (70-99)
--- NOTE | 2024-05-18 12:28 | CM ---
Chart reviewed and met with pt
PT/OT recs SNF
Received call from Kelly at [facility] - can accept. Call [phone] when medically ready
Plan - [facility] when medically ready
[2024-05-18] MEDS: NOVOLOG FLEXPEN-LOW RESISTANCE 1 UNITS SC ×2 (13:18→18:09)
[2024-05-18] MEDS: COUMADIN 5 MG PO (13:19)
[2024-05-18 16:36] LABS: Glucose - Point of Care 150 mg/dl (70-99)
[2024-05-18] MEDS: FLOMAX 0.4 MG PO (18:09)
[2024-05-18] MEDS: LIPITOR 40 MG PO (18:10)
[2024-05-18] MEDS: LOVENOX 40 MG SC (18:10)
[2024-05-18 21:16] LABS: Glucose - Point of Care 180 mg/dl (70-99)
[2024-05-18] MEDS: XALATAN OPHTHALMIC SOLUTION 1 DROP BOTH EYES (22:59)
[2024-05-19] MEDS: ROXICODONE 10 MG PO ×2 (02:24→08:45)
[2024-05-19 03:24] VITALS: BP 139/76
[2024-05-19] MEDS: TYLENOL PO (04:50)
[2024-05-19 06:24] LABS: Hematocrit 32.4 % (39.0-52.0); Hemoglobin 10.8 g/dL (13.0-18.0); Mean Corp Hgb Conc. 33.3 g/dL (33.0-37.0); Mean Corpuscular Hgb 30.7 pg (27.0-31.0); Mean Platelet Volume 10.9 fL (7.4-10.4); Platelet Count 160 10^3/uL (130-400); Red Blood Cell Count 3.52 10^6/uL (4.70-6.10); Red Cell Dist. Width 13.2 % (11.5-14.5); White Blood Cell Count 6.6 10^3/uL (4.8-10.8)
[2024-05-19 06:35] LABS: INR 1.44; PT 17.8 Sec (11.4-14.6)
[2024-05-19 06:59] LABS: Blood Urea Nitrogen 38 mg/dl (9-20); Calcium 8.1 mg/dl (8.4-10.2); Carbon Dioxide 24 mmol/L (22-30); Chloride 102 mmol/L (98-107); Estimated Creatinine Clearance 53 ml/min; Glucose 138 mg/dl (70-99); Potassium 4.2 mmol/L (3.5-5.1); Sodium 134 mmol/L (135-145); eGFR 45.21
[2024-05-19 07:15] VITALS: BP 136/67
[2024-05-19 08:35] LABS: Glucose - Point of Care 126 mg/dl (70-99)
--- NOTE | 2024-05-19 08:36 | W.PN.HOSP.TC ---
Today's Communication/Plan
-
dc
Assessment / Plan
Assessment / Plan
Physical Exam
General: Well Developed, Well Nourished and No Apparent Distress
HEENT: NormoCephalic
Respiratory: Clear
Cardiac: S1/S2 and Regular Rhythm
GI: Soft and Non Tender
Musculoskeletal: No Clubbing and Other , clean dressing, good peripheral pulses both lower extremities.
Skin: Warm
Neuro: Awake, Alert, Oriented and AO x 3
Hematologic/Lymphatic: No Lymphadenopathy
Psych: Calm
73-year-old male with past medical history of CAD status post CABG, atrial fibrillation, ablated, skin cancer, GERD, hypertension, hyperlipidemia, history diverticulosis, isu-fvgiwur-guarynrvo diabetes presents after trip and fall walking downstairs
resulting in acute nondisplaced fracture of the left femoral neck with mild impaction.
PLAN:
#Acute nondisplaced fracture of the left femoral neck with mild impaction s/p Left hip hemiarthroplasty by Dr. Michaels on 05/17.
No significant pain, would like to do PT and use bathroom, ok to do so with PT help
Weightbearing as tolerated left lower extremity
Posterior hip precautions
Pain control is better, he wants a script for oxy upon dc.
Per ortho: DVT prophylaxis: ok to start AC, resumed Coumadin, SQ Lovenox for 2 more doses until INR is up
Per ortho: Plan follow-up with myself outpatient in 2 to 3 weeks for repeat evaluation with planned removal of christina.
##Paroxysmal atrial fibrillation
-Continue diltiazem
� Monitor INR, today is 1.4, resumed Coumadin. INR in 2-3 days
# ROHIT, resolving
# Mild acute blood loss anemia
Monitored, mild, no hypotension or dizziness. he felt well with PT.
# CAD s/p CABG 02/21/22:
Resume statin, CCB
-not on ASA
Type 2 diabetes mellitus
-resume metformin
-Sliding scale coverage
# Mild hyponatremia, no confusion
# Obesity
BMI 38
# BPH
-Continue finasteride/tamsulosin
Hyperlipidemia
-Continue atorvastatin
DVT prophylaxis SCDs;
Full CODE STATUS
Total discharge time spent to see the patient, examine the patient, review data and lab results, discuss the discharge plan with patient, nursing staff around 65 minutes
Anticipated Discharge: Today
Subjective/Interval History
-
Date of Service: May 19, 2024
No chest pain
NO sob
No abdominal pain
He wants a script for pain medicine to go with him to rehab, he feels ready to rehab today
Objective Data
-
Labs:
Laboratory Results
05/19/24
05:22
WBC 6.6
Hgb 10.8 L
Hct 32.4 L
Plt Count 160
PT 17.8 H
INR 1.44
Sodium 134 L
Potassium 4.2
Chloride 102
Carbon Dioxide 24
BUN 38 H
Creatinine 1.6 H
Glucose 138 H
Calcium 8.1 L
Vital Signs:
Vital Signs
Temp Pulse Resp BP Pulse Ox
98 F 70 20 136/67 97
05/19/24 07:15 05/19/24 07:15 05/19/24 07:15 05/19/24 07:15 05/19/24 07:15
I&O
05/18/24 05/19/24 05/20/24
06:59 06:59 06:59
Intake Total 1680 / 1680 1737 / 1737
Output Total 1050 / 1050 850 / 850
Balance 630 / 630 887 / 887
[2024-05-19] MEDS: NOVOLOG FLEXPEN-LOW RESISTANCE SC (08:40)
[2024-05-19] MEDS: SENOKOT 17.2 MG PO (08:45)
[2024-05-19] MEDS: COLACE 100 MG PO (08:45)
[2024-05-19] MEDS: CARDIZEM CD 180 MG PO (08:45)
[2024-05-19] MEDS: TYLENOL 650 MG PO ×2 (08:45→12:24)
[2024-05-19] MEDS: COSOPT EYE DROPS 1 DROP LEFT EYE (08:46)
[2024-05-19] MEDS: COUMADIN 5 MG PO (08:46)
[2024-05-19] MEDS: PROSCAR 5 MG PO (08:46)
[2024-05-19] MEDS: COUMADIN PO (08:50)
--- NOTE | 2024-05-19 10:18 | CM ---
CM following re: discharge planning.
Reviewed pt's chart, met with pt and spoke to pt's spouse over the phone to update on discharge plan progress.
Discharge order noted. Both pt and his spouse are aware, expressed their agreement. IMM reviewed, placed on chart, pt has a copy.
CM spoke to [facility] campus director and she confirmed that they do have a bed available and pt is accepted for admission today.
Pt's spouse stated she was at [facility] yesterday and she signed all necessary paperwork.
to arrange transportation, [facility] and left with .
[facility] nursing report: [phone] ext. [phone]
Discharge instructions fax: [phone]
D/C plan: [facility].
[2024-05-19] MEDS: FLUAD (65 yr+) 2024-2025 FORMULA 0.5 ML IM (10:24)
--- NOTE | 2024-05-19 11:05 | W.PN.ORTHO ---
Today's Communication / Plan
-
73-year-old male postop day 2 status post left hip hemiarthroplasty
Weightbearing as tolerated left lower extremity
PT OT
Posterior hip precautions
Abduction pillow while in bed
Pain control
Medical management per primary team
Okay to resume Coumadin for DVT prophylaxis
Follow-up outpatient myself in 2 to 3 weeks for repeat evaluation with planned removal of christina
Subjective
.
.:
Patient currently resting comfortably in bed. Does report that he woke up in the middle the night was somewhat disoriented and tried to get out of bed and felt some discomfort in his groin. Reports that this is subsequently subsided. Denies any
trauma or falls.
Vital Signs and Labs
.
Vital Signs and Labs:
Lab Results
05/19/24 05:22
05/19/24 05:22
Temp Pulse Resp BP Pulse Ox
98 F 81 20 130/94 97
05/19/24 07:15 05/19/24 08:45 05/19/24 07:15 05/19/24 08:45 05/19/24 07:15
PT 17.8 Sec (11.4-14.6) H 05/19/24 05:22
INR 1.44 05/19/24 05:22
Physical Exam
-
Musculoskeletal left lower extremity
Dressing with moderate bloody drainage
Moderate swelling thigh
No palpable ipsilateral knee effusion
Positive EHL, FHL, ankle dorsiflexion, plantarflexion
Leg lengths equal
Leg is resting appropriately in external rotation
[2024-05-19 11:12] VITALS: BP 125/56
[2024-05-19 12:01] LABS: Glucose - Point of Care 152 mg/dl (70-99)
[2024-05-19] MEDS: NOVOLOG FLEXPEN-LOW RESISTANCE 1 UNITS SC (12:24)
[2024-05-19] MEDS: ROXICODONE 5 MG PO (12:58)
--- NOTE | 2024-05-19 13:07 | W.DCSUMMARY ---
Discharge Summary
Discharge Data
Date of Admission: 05/15/24
Date of Discharge: 05/19/24
-
Pending Results: No
Hospital Course
73 years old male presented to the emergency room after a fall walking downstairs with subsequent pain to the left hip. No head trauma or confusion. He denied lightheadedness, dizziness, loss of consciousness, chest pain. Head CT unremarkable,
pelvic CT with acute nondisplaced fracture of the left femoral neck with mild impaction. Patient was on Coumadin, INR noted to be 2.65. Patient was evaluated by Orthopedic doctor and recommended surgical repair after lowering INR. Patient received
vitamin K and he underwent left hip hemiarthroplasty on 05/[address] Michaels with no complications. Coumadin was resumed post surgery and was given SQ Lovenox for an additional measure for DVT prophylaxis. Patient was evaluated by physical therapy
and was discharged to shelter facility in a stable condition.
Discharge Plan
-
Patient Disposition: [facility]/SNF
Discharge Diagnosis/Procedures: Status post status post left hip hemiarthroplasty, Weightbearing as tolerated left lower extremity
continue with daily Coumadin, use two doses of SQ Lovenox for DVT prophylaxis until INR goes up to >1.8
Diet: As tolerated
Blood Work: CBC, INR, BMP in 2 - 3 days
Referrals:
Francesco Michaels MD [Active] - in two to three weeks
Jorge Floyd DO [Family Provider] - in two to four weeks
Prescriptions:
New
acetaminophen 325 mg Tablet
650 mg PO Q6HPRN PRN (Reason: mild pain) Qty: 20 0RF
enoxaparin 40 mg/0.4 mL Syringe
40 mg SC QPM Qty: 2 0RF
sennosides [Senna Laxative] 8.6 mg Tablet
17.2 mg PO BID Qty: 20 0RF
magnesium hydroxide [Milk of Magnesia] 400 mg/5 mL Suspension
30 ml PO DAILYPRN PRN (Reason: constipation) Qty: 355 0RF
oxycodone 5 mg Tablet
5 mg PO Q4HPRN PRN (Reason: mod to severe pain) Qty: 20 0RF
Continued
latanoprost 1 DROP drops
1 drp BOTH EYES HS
finasteride 5 MG tablet
5 mg PO DAILY
metformin 500 MG tablet
500 mg PO BID Qty: 0 0RF
tamsulosin 0.4 mg Capsule
0.4 mg PO QPM
atorvastatin 40 mg Tablet
40 mg PO QPM Qty: 30 2RF
warfarin 5 mg Tablet
5 mg PO HS
dorzolamide-timolol 22.3-6.8 mg/mL drops
1 drp LEFT EYE BID
diltiazem HCl [Matzim LA] 180 mg Tablet Extended Release 24 Hr
180 mg PO DAILY
Discharge Orders:
Discharge Patient (As Directed); Ordered 05/19/24
Ordered By: Roberto Metz
Discharge Date and Time
Print Language: INDONESIAN
[2024-05-19 15:18] VITALS: BP 126/53
== END 2024-05-19 16:02 | DRG 522 ==
LOC: 2 SOUTH 12:56
PROVIDERS: Nurse Practitioner Gerontology; ADMITTING PHYSICIAN Internal Medicine; ATTENDING PHYSICIAN Internal Medicine; CONSULT PHYSICIAN Orthopaedic Surgery; EMERGENCY PHYSICIAN Emergency Medicine; FAMILY PHYSICIAN Internal Medicine
PROC: 0SRS0JZ Replacement of Left Hip Joint, Femoral Surface with Synthetic Substitute, Open Approach (ICD-10-PCS; 2024-05-17)
DX: S72.002A Fracture of unspecified part of neck of left femur, initial encounter for closed fracture (principal); N17.9 Acute kidney failure, unspecified; D62 Acute posthemorrhagic anemia; E87.1 Hypo-osmolality and hyponatremia; W10.8XXA Fall (on) (from) other stairs and steps, initial encounter; I48.0 Paroxysmal atrial fibrillation; I25.10 Atherosclerotic heart disease of native coronary artery without angina pectoris; E11.9 Type 2 diabetes mellitus without complications; I11.0 Hypertensive heart disease with heart failure; I50.9 Heart failure, unspecified; E66.9 Obesity, unspecified; Z68.38 Body mass index [BMI] 38.0-38.9, adult; Z79.84 Long term (current) use of oral hypoglycemic drugs
CPT/HCPCS: 36415; 70450; 72192; 73502; 80048; 80053; 82962; 85025; 85027; 85610; 85730; 90662; 96374; 96375; 96376; 97116; 97163; 97166; 97530; 99285; C1776; G0008

== ENCOUNTER 2024-07-03 22:56 | Emergency (ER) | payer MEDICARE, OTHER, SELFPAY ==
[2024-07-03 22:59] VITALS: BP 135/60
--- NOTE | 2024-07-03 23:03 | ED.GENMED ---
History of Present Illness
General
Chief Complaint: Musculo-Skeletal Complaint
Source: patient and ambulance crew
Time Seen by Provider: 07/03/24 23:01
History of Present Illness
History of Present Illness:
74-year-old male presents emergency department complaints of left hip pain that started this evening as he was getting up. No history of actual fall. He describes the left hip area as 'tightening up' severely causing him pain. He does not have
pain just laying here in the bed, but only when he tries to move his leg. He states that he has been recovering well since his surgery on May 17, participating in therapy, doing his exercises, etc. He denies recent trauma or fall. He denies
numbness, tingling, weakness, headache, neck pain, chest pain, shortness of breath, abdominal pain, back pain, or other complaints. The pain is located on the lateral aspect of his left hip.
Past History
Past History
ED Past Medical History: Arrthythmia (Atrial fibrillation, has been ablated.), CAD, Cancer (Skin cancer), GERD, HTN, Hypercholesterolemia, NIDDM, [place] and Other (Diverticulosis, diverticulitis, skin cancer)
ED Past Surgical History: Bowel resection (Sigmoid resection), Cardiac, Cholecystectomy, Orthopedic (Lateral knee arthroscopies, and multiple skin cancer lesions removed) and Other (2 hernia procedures)
Social History
Tobacco: Non-smoker
Alcohol: Occasional
Drug: None
Personal:
Living: with family
Employment: Employed
Family History
Family History: Other (Noncontributory)
Phy Exam
Physical Exam
Physical Exam:
GENERAL: Alert , in no apparent distress
EYE: pupils equal and reactive, no photophobia
NECK: Supple, no significant adenopathy.
ENT: o/p clr, mmm.
CARDIAC: Regular rate and rhythm .
LUNGS: Clear breath sounds bilaterally, no acute respiratory distress, no wheezes/rales/rhonchi
ABDOMEN: Soft, without focal tenderness, no r/g, no cvat, reducible hernias noted
NEUROLOGICAL: Alert and oriented, no focal neuro deficits
SKIN: Warm and dry, skin intact.
MUSCULOSKELETAL: Trace bilateral lower extremity edema, well perfused, 2+ DP pulses noted. Left hip incision clean dry and intact without redness drainage tenderness palpation or other abnormalities. Throughout hip pelvic area, no tenderness to
palpation. Patient does have limitations in range of motion of left hip particularly with flexion due to discomfort
PSYCH: Normal and appropriate interaction.
Course
Orders/Labs/Results
Orders:
Orders
07/03/24 23:03
Hip, Left 2-3 Views [CR Hip - LT w/wo Pel 2-3 Vw*] Urgent
Comment:
Reason For Exam: pain
Include a pelvis x-ray?: Yes
07/03/24 23:07
Complete Blood Count/With Diff Urgent
Comprehensive Metabolic Panel Urgent
PTT Urgent
Prothrombin Time Urgent
Abnormal Lab Results
07/03/24
23:07
RBC 3.56 L 10^6/uL
(4.70-6.10)
Hgb 9.9 L g/dL
(13.0-18.0)
Hct 30.9 L %
(39.0-52.0)
MCHC 32.0 L g/dL
(33.0-37.0)
RDW 14.6 H %
(11.5-14.5)
Monocytes % 9.6 H %
(1.7-9.3)
PT 28.5 H Sec
(11.4-14.6)
APTT 62.1 H Sec
(23.4-35.0)
Sodium 132 L mmol/L
(135-145)
BUN 22 H mg/dl
(9-20)
Glucose 117 H mg/dl
(70-99)
AST 74 H U/L
(17-59)
ALT 92 H U/L
(0-50)
Albumin 3.1 L g/dl
(3.5-5.0)
07/03/24 23:07
07/03/24 23:07
Vital Signs
Initial and Last Documented VS:
Initial Vital Signs
Temp Pulse Resp BP Pulse Ox
98.4 F 81 20 135/60 95
07/03/24 22:59 07/03/24 22:59 07/03/24 22:59 07/03/24 22:59 07/03/24 22:59
Last Documented Vital Signs
Temp Pulse Resp BP Pulse Ox
98.4 F 72 18 120/59 95
07/03/24 22:59 07/04/24 00:00 07/04/24 00:00 07/04/24 00:00 07/04/24 00:00
*Critical Care Note
Total Time (30-74mins, 75-104mins- exclusive of procedures): Not Applicable
Update Note
Update Note:
Patient presents to the Emergency Department with __left hip pain
Number and Complexity of Problems Addressed at the Encounter
� Chronic conditions affecting care:
� Acute Exacerbation and/or Progression of Chronic Illness:
� Differential Diagnosis includes: But not limited to muscle spasm, muscle strain, dislocation, occult fracture, etc. etc.
Amount and/or Complexity of Data to be Reviewed and Analyzed
� I performed an independent evaluation of and my interpretation is:
EKG:
CT:
Xrays:read by me, nad, no fx, no dislocation
Laboratory Studies:generally unremarkable
Other:
� Review of other/old records reveals: Discharge summary reviewed from patient's left Ronak arthroplasty in April, noted to be on Coumadin, we will check an INR today
� Clinical information was obtained by an independent historian: EMS
� Prescriptions/Medications Considered but not given:
� Further testing considered but not performed:
Risk of Complications and/or Morbidity or Mortality of Patient Management
� Social determinants of health affecting care:
� Discussion with other providers (PCP, Hospitalists, Consultants, etc):
� Escalation of care including admission/observation vs risk of discharge considered:1222am Pt no longer c/o pain. He is able to stand and walk to br here (with walker, as he tyically would) and does not have limitations or
complaints. No weakness, no vascular compomise (pulses nl, well perfused), no fx/dislocation. Doubt infection as cause of sxs. 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
Will rx very small/limited amount of muscle relaxant prn.
ED Attending Note
-
Portions of this chart may have been created with voice recognition software.� Occasional wrong word or��sound alike� substitutions may have occurred due to the inherent limitations of voice recognition software.
Discharge Plan
Departure
Patient Disposition: Home (Routine Discharge)
Date of Disposition: 07/04/24
Time of Disposition: 00:24
Patient with high blood pressure during this ER visit?: Yes
Condition: Good
Discharge Problem:
Hip pain
Instructions: Hip Pain ED, BLOOD PRESSURE
Prescriptions:
New
cyclobenzaprine 5 mg tablet
5 mg PO BID PRN (Reason: MUSCLE SPASM) Qty: 7 0RF
No Action
latanoprost 1 DROP drops
1 drp BOTH EYES HS
finasteride 5 MG tablet
5 mg PO DAILY
metformin 500 MG tablet
500 mg PO BID Qty: 0 0RF
tamsulosin 0.4 mg Capsule
0.4 mg PO QPM
atorvastatin 40 mg Tablet
40 mg PO QPM Qty: 30 2RF
dorzolamide-timolol 22.3-6.8 mg/mL drops
1 drp LEFT EYE BID
diltiazem HCl [Matzim LA] 180 mg Tablet Extended Release 24 Hr
180 mg PO DAILY
acetaminophen 325 mg Tablet
650 mg PO Q6HPRN PRN (Reason: mild pain) Qty: 20 0RF
warfarin 3 mg Tablet
3 mg PO .DAILYQMONTUEWEDTHUR
warfarin 1 mg Tablet
1.5 mg PO .DAILYQFRISATSUN
escitalopram oxalate 10 mg Tablet
10 mg PO DAILY
Referrals:
Jorge Floyd DO [Family Provider] - Follow up in 2-3 days
Activity Restrictions/Additional Instructions:
IF YOU DEVELOP WORSENING/NEW/RECURRENT HIP PAIN, ANY FEVER, NUMBNESS, WEAKNESS, DIFFICULTY WALKING OR OTHER WORRISOME SIGNS, GO TO THE ER IMMEDIATELy!
Interventions
Interventions:
*Risk Screen - Suicide Last Done: 07/03/24 23:11
*General Assessment Last Done: 07/03/24 23:11
*Neglect/Abuse Screening Last Done: 07/03/24 23:11
*ED COVID-19 Vaccine History Last Done: 07/03/24 23:10
*Nursing Disposition Last Done: 07/04/24 00:59
ED-Musculoskeletal Assessment Last Done: 07/03/24 23:13
Discharge Date and Time
Discharge Date/Time: 07/04/24 01:00
Print Language: YAKUT
[2024-07-03 23:11] VITALS: BMI 36.8
[2024-07-03 23:14] LABS: % Basophils 0.4 % (0-2); % Eosinophils 1.9 % (0-6); % Immature Granulocytes 0.2 % (0-0.5); % Lymphocytes 27.4 % (20.5-51.1); % Monocytes 9.6 % (1.7-9.3); % Neutrophils 60.5 % (42.2-75.2); Absolute Eosinophils 0.1 10^3/uL (0-0.7); Absolute Lymphocytes 1.6 10^3/uL (1.2-3.4); Absolute Monocytes 0.5 10^3/uL (0.1-0.6); Absolute Neutrophils 3.4 10^3/uL (1.4-6.5); Hematocrit 30.9 % (39.0-52.0); Hemoglobin 9.9 g/dL (13.0-18.0); Mean Corpuscular Hgb 27.8 pg (27.0-31.0); Mean Corpuscular Volume 86.8 fL (80.0-94.0); Mean Platelet Volume 8.9 fL (7.4-10.4); Nucleated Red Blood Cells % 0 % (-); Platelet Count 341 10^3/uL (130-400); Red Blood Cell Count 3.56 10^6/uL (4.70-6.10); Red Cell Dist. Width 14.6 % (11.5-14.5); White Blood Cell Count 5.7 10^3/uL (4.8-10.8)
[2024-07-03 23:26] LABS: INR 2.68; PT 28.5 Sec (11.4-14.6)
[2024-07-03 23:27] LABS: APTT 62.1 Sec (23.4-35.0)
[2024-07-03 23:42] LABS: ALT (SGPT) 92 U/L (0-50); AST (SGOT) 74 U/L (17-59); Albumin 3.1 g/dl (3.5-5.0); Alkaline Phosphatase 121 U/L (38-126); Blood Urea Nitrogen 22 mg/dl (9-20); Calcium 8.5 mg/dl (8.4-10.2); Carbon Dioxide 26 mmol/L (22-30); Chloride 101 mmol/L (98-107); Estimated Creatinine Clearance 83 ml/min; Glucose 117 mg/dl (70-99); Potassium 4.1 mmol/L (3.5-5.1); Sodium 132 mmol/L (135-145); Total Bilirubin 0.5 mg/dl (0.2-1.3); Total Protein 6.3 g/dl (6.3-8.2); eGFR > 60.00
[2024-07-04] VITALS: BP 120/59
== END 2024-07-04 01:00 | disposition home or self-care (01) ==
LOC: EMR 22:56
PROVIDERS: EMERGENCY PHYSICIAN Emergency Medicine; FAMILY PHYSICIAN Internal Medicine
DX: M25.552 Pain in left hip (principal); E11.9 Type 2 diabetes mellitus without complications; E78.00 Pure hypercholesterolemia, unspecified; I10 Essential (primary) hypertension; I25.10 Atherosclerotic heart disease of native coronary artery without angina pectoris; I48.91 Unspecified atrial fibrillation; K21.9 Gastro-esophageal reflux disease without esophagitis; Z85.828 Personal history of other malignant neoplasm of skin; Z90.49 Acquired absence of other specified parts of digestive tract; Z96.642 Presence of left artificial hip joint
CPT/HCPCS: 99284; 73502; 80053; 85025; 85610; 85730

== ENCOUNTER 2024-07-10 14:30 | Emergency (ER) | payer MEDICARE, OTHER, SELFPAY ==
[2024-07-10 14:59] VITALS: BP 148/84
--- NOTE | 2024-07-10 17:56 | ED.MUSCINJ ---
HPI-Injury
<Larisa Cueva, [employer] - Last Filed: 07/12/24 16:46>
General
Chief Complaint: Musculo-Skeletal Complaint
Source: patient
Exam Limitations: none
Time Seen by Provider: 07/10/24 16:41
Nursing documentation reviewed up to this point in time: agreed with
History of Present Illness-Injury
Initial Injury comments:
74-year-old male with history of A-fib on Coumadin, NV, CAD, HTN, HLD, RCA stent 2014, GERD, NIDDM, left hip replacement 04/2024 and has been having physical therapy, OT twice weekly and visiting nurse weekly since. He was doing his physical
therapy today and he states he thinks he overdid it and developed pain in the right lower anterior rib area. His and the physical therapist insisted that he come here to rule out cardiac etiology. He denies chest pain, SOB, palpitations,
lightheadedness, N/V.
He states 'I know I just overdid it with the leg exercises.
Past History
<Larisa Cueva, [employer] - Last Filed: 07/12/24 16:46>
Past History
ED Past Medical History: Arrthythmia (Atrial fibrillation, has been ablated.), CAD, Cancer (Skin cancer), GERD, HTN, Hypercholesterolemia, NIDDM, [place] and Other (Diverticulosis, diverticulitis, skin cancer)
ED Past Surgical History: Bowel resection (Sigmoid resection), Cardiac, Cholecystectomy, Orthopedic (Lateral knee arthroscopies, and multiple skin cancer lesions removed) and Other (2 hernia procedures)
Social History
Tobacco: Non-smoker
Alcohol: Occasional
Drug: None
Personal:
Living: with family
Employment: Employed
Family History
Family History: Other (Noncontributory)
Review of Systems
<Larisa Cueva, [employer] - Last Filed: 07/12/24 16:46>
Review of Systems
Allergies reviewed?: Yes
All Other Systems: ROS reviewed and negative except as documented in HPI and ROS
Constitutional: Reports fever; Denies fatigue
Respiratory: Denies trouble breathing
Cardiac: Denies chest pain, diaphoresis or palpitations
ABD/GI: Denies abdominal pain, nausea or vomiting
: Denies dysuria or difficulty voiding
Musculoskeletal: Reports other (pain/tender left lower rib cage border)
Skin: Reports no symptoms
Neurological: Reports no symptoms
Phy Exam
<Larisa Cueva, [employer] - Last Filed: 07/12/24 16:46>
Physical Exam
Physical Exam:
GENERAL: No acute distress. A&Ox3.
CONSTITUTIONAL: Afebrile.
EYES: clear, conjunctivae normal
ENMT: moist mucus membranes, Pharynx nl
RESPIRATORY: Regular respirations, nonlabored, lungs clear.
CARDIOVASCULAR: Regular rate and rhythm, no murmurs, no rubs.
GI: Soft, nontender, normal BS
MUSCULOSKELETAL: Tender to palpate left anterior lower rib margin moves with ease. Well perfused.
SKIN: Warm, dry, pink
PSYCH: Normal mood and affect. Well kept, interactive and appropriate
NEUROLOGIC: Awake, alert and oriented. No focal neurological deficits
Injury Course
<Larisa Cueva, [employer] - Last Filed: 07/12/24 16:46>
Orders/Labs/Results
Orders:
Orders
07/10/24 14:34
ECG [Electrocardiogram (*1)] Urgent
Reason for Study: Other
Other Reason for Exam: rib pain
07/10/24 14:35
EKG- Treatment ONCE
07/10/24 15:01
CR Ribs-left 3 Vw W/pa Chest Urgent
Comment:
Reason For Exam: left rib pain
07/10/24 18:06
Complete Blood Count/With Diff Urgent
Comprehensive Metabolic Panel Urgent
Prothrombin Time Urgent
Troponin I Urgent
07/10/24 18:24
Acetaminophen [Tylenol] 1,000 mg PO NOW STA
07/10/24 18:25
Acetaminophen [Tylenol] 1,000 mg .ROUTE .STK-MED ONE
07/10/24 18:41
US Abdomen Complete/Upper Urgent
Comment:
Reason For Exam: left sided rib/abd pain
Abnormal Lab Results
07/10/24
18:06
RBC 3.50 L 10^6/uL
(4.70-6.10)
Hgb 9.7 L g/dL
(13.0-18.0)
Hct 29.7 L %
(39.0-52.0)
MCHC 32.7 L g/dL
(33.0-37.0)
RDW 14.8 H %
(11.5-14.5)
Plt Count 403 H 10^3/uL
(130-400)
Monocytes % 10.8 H %
(1.7-9.3)
PT 20.7 H Sec
(11.4-14.6)
Sodium 134 L mmol/L
(135-145)
Chloride 97 L mmol/L
(98-107)
AST 107 H U/L
(17-59)
ALT 165 H U/L
(0-50)
07/10/24 18:06
07/10/24 18:06
Iwonalt;RITO Wiggins - Last Filed: 07/10/24 23:05>
Orders/Labs/Results
Orders:
Orders
07/10/24 14:34
ECG [Electrocardiogram (*1)] Urgent
Reason for Study: Other
Other Reason for Exam: rib pain
07/10/24 14:35
EKG- Treatment ONCE
07/10/24 15:01
CR Ribs-left 3 Vw W/pa Chest Urgent
Comment:
Reason For Exam: left rib pain
07/10/24 18:06
Complete Blood Count/With Diff Urgent
Comprehensive Metabolic Panel Urgent
Prothrombin Time Urgent
Troponin I Urgent
07/10/24 18:24
Acetaminophen [Tylenol] 1,000 mg PO NOW STA
07/10/24 18:25
Acetaminophen [Tylenol] 1,000 mg .ROUTE .STK-MED ONE
07/10/24 18:41
US Abdomen Complete/Upper Urgent
Comment:
Reason For Exam: left sided rib/abd pain
Abnormal Lab Results
07/10/24
18:06
RBC 3.50 L 10^6/uL
(4.70-6.10)
Hgb 9.7 L g/dL
(13.0-18.0)
Hct 29.7 L %
(39.0-52.0)
MCHC 32.7 L g/dL
(33.0-37.0)
RDW 14.8 H %
(11.5-14.5)
Plt Count 403 H 10^3/uL
(130-400)
Monocytes % 10.8 H %
(1.7-9.3)
PT 20.7 H Sec
(11.4-14.6)
Sodium 134 L mmol/L
(135-145)
Chloride 97 L mmol/L
(98-107)
AST 107 H U/L
(17-59)
ALT 165 H U/L
(0-50)
07/10/24 18:06
07/10/24 18:06
<Larisa Cueva, [employer] - Last Filed: 07/12/24 16:46>
MDM/Problems Addressed
Differential Diagnosis Includes:
Musculoskeletal pain, rib pain
MDM/Problems Addressed:
74-year-old male with history of A-fib on Coumadin, NV, CAD, HTN, HLD, RCA stent 2014, GERD, NIDDM, left hip replacement 04/2024 and has been having physical therapy, OT twice weekly and visiting nurse weekly since. He was doing his physical
therapy today and he states he thinks he overdid it and developed pain in the right lower anterior rib area. His and the physical therapist insisted that he come here to rule out cardiac etiology. He denies chest pain, SOB, palpitations,
lightheadedness, N/V.
He states 'I know I just overdid it with the leg exercises.
Afebrile, NAD
Definitely reproducible pain at the lower edge of his left rib cage anteriorly. Palpation of this area immediately reproduces his pain.
6:30 p.m.
Liver enzymes trending up. Will get US
Case disscussed with Migdalia Mark [employer] who will assume care from this point.
<RITO Wiggins - Last Filed: 07/10/24 23:05>
MDM/Problems Addressed
MDM/Problems Addressed:
74-year-old male with history of A-fib on Coumadin, NV, CAD, HTN, HLD, RCA stent 2014, GERD, NIDDM, left hip replacement 04/2024 and has been having physical therapy, OT twice weekly and visiting nurse weekly since. He was doing his physical
therapy today and he states he thinks he overdid it and developed pain in the right lower anterior rib area. His and the physical therapist insisted that he come here to rule out cardiac etiology. He denies chest pain, SOB, palpitations,
lightheadedness, N/V.
He states 'I know I just overdid it with the leg exercises.
Afebrile, NAD
Definitely reproducible pain at the lower edge of his left rib cage anteriorly. Palpation of this area immediately reproduces his pain.
6:30 p.m.
Liver enzymes trending up. Will get US
Case disscussed with Migdalia Mark [employer] who will assume care from this point.
Assumed care of patient .
ultrasound negative for acute findings(gallbladder absent CBD within normal limits) patient denies any abdominal pain/rib pain presently. He complains of mild soreness in his hip however denies any left rib/abdominal pain. He is in no distress was
able to bear weight with walker. feels well enough to go home. d/c w/ close outpt fu
<RITO Wiggins - Last Filed: 07/10/24 23:05>
*Critical Care Note
Total Time (30-74mins, 75-104mins- exclusive of procedures): Not Applicable
ED Attending Note
<Larisa Cueva NP - Last Filed: 07/12/24 16:46>
-
Portions of this chart may have been created with voice recognition software.� Occasional wrong word or��sound alike� substitutions may have occurred due to the inherent limitations of voice recognition software.
Discharge Plan
Departure
Patient Disposition: Home (Routine Discharge)
Date of Disposition: 07/10/24
Time of Disposition: 22:18
Patient with high blood pressure during this ER visit?: Yes
Condition: Fair
Covid-19: Not Applicable
Discharge Problem:
muscle and bone pain
Instructions: Muscle and Bone Pain (DC), BLOOD PRESSURE
Prescriptions:
No Action
latanoprost 1 DROP drops
1 drp BOTH EYES HS
finasteride 5 MG tablet
5 mg PO DAILY
metformin 500 MG tablet
500 mg PO BID Qty: 0 0RF
tamsulosin 0.4 mg Capsule
0.4 mg PO QPM
atorvastatin 40 mg Tablet
40 mg PO QPM Qty: 30 2RF
dorzolamide-timolol 22.3-6.8 mg/mL drops
1 drp LEFT EYE BID
diltiazem HCl [Matzim LA] 180 mg Tablet Extended Release 24 Hr
180 mg PO DAILY
acetaminophen 325 mg Tablet
650 mg PO Q6HPRN PRN (Reason: mild pain) Qty: 20 0RF
warfarin 3 mg Tablet
3 mg PO .DAILYQMONTUEWEDTHUR
warfarin 1 mg Tablet
1.5 mg PO .DAILYQFRISATSUN
escitalopram oxalate 10 mg Tablet
10 mg PO DAILY
cyclobenzaprine 5 mg tablet
5 mg PO BID PRN (Reason: MUSCLE SPASM) Qty: 7 0RF
Referrals:
Jorge Floyd, DO [Family Provider] - As needed
Activity Restrictions/Additional Instructions:
As we discussed, nothing worrisome in your workup here today, specifically no indication that your heart is the cause of your symptoms. No sign of a heart attack
You are tender along the ridge of your lower left ribs, this is consistent with some musculoskeletal pain. You may have strained or mildly bruised the lower rib area doing your leg exercises.
Tylenol as needed for pain. A heating pad may help
Also as discussed your liver function test were elevated. Please have them rechecked by your family doctor in the next week. Please call your doctor Saturday for an appointment Saturday or Saturday for reevaluation. Return if any worsening of symptoms
Interventions
Interventions:
*Risk Screen - Suicide Last Done: 07/10/24 18:31
*General Assessment Last Done: 07/10/24 14:59
*Neglect/Abuse Screening Last Done: 07/10/24 22:42
ED- Fall Risk Assessment Last Done: 07/10/24 20:49
*ED COVID-19 Vaccine History Last Done: 07/10/24 18:30
*Nursing Disposition Last Done: 07/10/24 22:42
ED-Musculoskeletal Assessment Last Done: 07/10/24 18:31
Discharge Date and Time
Discharge Date/Time: 07/10/24 22:43
Print Language: [place]LAND[place]
[2024-07-10 18:14] LABS: % Basophils 0.3 % (0-2); % Eosinophils 1.9 % (0-6); % Immature Granulocytes 0.3 % (0-0.5); % Lymphocytes 36.8 % (20.5-51.1); % Monocytes 10.8 % (1.7-9.3); % Neutrophils 49.9 % (42.2-75.2); Absolute Eosinophils 0.1 10^3/uL (0-0.7); Absolute Lymphocytes 2.1 10^3/uL (1.2-3.4); Absolute Monocytes 0.6 10^3/uL (0.1-0.6); Absolute Neutrophils 2.9 10^3/uL (1.4-6.5); Hematocrit 29.7 % (39.0-52.0); Hemoglobin 9.7 g/dL (13.0-18.0); Mean Corp Hgb Conc. 32.7 g/dL (33.0-37.0); Mean Corpuscular Hgb 27.7 pg (27.0-31.0); Mean Corpuscular Volume 84.9 fL (80.0-94.0); Mean Platelet Volume 8.9 fL (7.4-10.4); Nucleated Red Blood Cells % 0 % (-); Platelet Count 403 10^3/uL (130-400); Red Cell Dist. Width 14.8 % (11.5-14.5); White Blood Cell Count 5.8 10^3/uL (4.8-10.8)
[2024-07-10 18:24] LABS: INR 1.75; PT 20.7 Sec (11.4-14.6)
[2024-07-10] MEDS: TYLENOL 1000 MG PO (18:27)
[2024-07-10 18:30] LABS: ALT (SGPT) 165 U/L (0-50); AST (SGOT) 107 U/L (17-59); Albumin 3.6 g/dl (3.5-5.0); Alkaline Phosphatase 111 U/L (38-126); Blood Urea Nitrogen 20 mg/dl (9-20); Calcium 8.7 mg/dl (8.4-10.2); Carbon Dioxide 23 mmol/L (22-30); Chloride 97 mmol/L (98-107); Glucose 95 mg/dl (70-99); Potassium 3.8 mmol/L (3.5-5.1); Sodium 134 mmol/L (135-145); Total Bilirubin 0.9 mg/dl (0.2-1.3); Total Protein 6.7 g/dl (6.3-8.2); eGFR > 60.00
[2024-07-10 18:38] LABS: Troponin I 0.015 ng/ml
[2024-07-10 20:49] VITALS: BP 147/81; BMI 35.7
== END 2024-07-10 22:43 | disposition home or self-care (01) ==
LOC: EMR 14:30
PROVIDERS: Registered Nurse; EMERGENCY PHYSICIAN Emergency Medicine; FAMILY PHYSICIAN Internal Medicine
DX: M89.8X9 Other specified disorders of bone, unspecified site (principal); I25.10 Atherosclerotic heart disease of native coronary artery without angina pectoris; K21.9 Gastro-esophageal reflux disease without esophagitis; I10 Essential (primary) hypertension; E78.00 Pure hypercholesterolemia, unspecified; E11.9 Type 2 diabetes mellitus without complications; Z79.01 Long term (current) use of anticoagulants; Z85.828 Personal history of other malignant neoplasm of skin; Z90.49 Acquired absence of other specified parts of digestive tract; Z95.5 Presence of coronary angioplasty implant and graft; Z96.642 Presence of left artificial hip joint
CPT/HCPCS: 99284; 71101; 76700; 80053; 84484; 85025; 85610; 93005

== ENCOUNTER → 2024-07-24 07:59 | Outpatient (REF) | payer MEDICARE, OTHER, SELFPAY ==
[2024-07-24 10:17] LABS: INR 1.87; PT 21.7 Sec (11.4-14.6)
[2024-07-24 10:31] LABS: ALT (SGPT) 50 U/L (0-50); AST (SGOT) 31 U/L (17-59); Albumin 3.7 g/dl (3.5-5.0); Alkaline Phosphatase 105 U/L (38-126); Blood Urea Nitrogen 20 mg/dl (9-20); Calcium 9.4 mg/dl (8.4-10.2); Carbon Dioxide 23 mmol/L (22-30); Chloride 102 mmol/L (98-107); Glucose 109 mg/dl (70-99); Potassium 4.8 mmol/L (3.5-5.1); Sodium 137 mmol/L (135-145); Total Bilirubin 0.7 mg/dl (0.2-1.3); Total Protein 6.9 g/dl (6.3-8.2); eGFR > 60.00
== END ==
LOC: HWLAB 07:59
PROVIDERS: ATTENDING PHYSICIAN Internal Medicine Cardiovascular Disease; FAMILY PHYSICIAN Internal Medicine
DX: R74.8 Abnormal levels of other serum enzymes (principal); I48.0 Paroxysmal atrial fibrillation
CPT/HCPCS: 36415; 80053; 85610

== ENCOUNTER → 2024-07-31 08:42 | Outpatient (REF) | payer MEDICARE, OTHER, SELFPAY ==
[2024-07-31 11:42] LABS: INR 1.61; PT 19.3 Sec (11.4-14.6)
== END ==
LOC: HWLAB 08:42
PROVIDERS: ATTENDING PHYSICIAN Internal Medicine Cardiovascular Disease; FAMILY PHYSICIAN Internal Medicine
DX: I48.0 Paroxysmal atrial fibrillation (principal)
CPT/HCPCS: 36415; 85610

== ENCOUNTER → 2024-08-07 09:39 | Outpatient (REF) | payer MEDICARE, OTHER, SELFPAY ==
[2024-08-07 13:09] LABS: INR 2.02
== END ==
LOC: HWLAB 09:39
PROVIDERS: ATTENDING PHYSICIAN Internal Medicine Cardiovascular Disease; FAMILY PHYSICIAN Internal Medicine
DX: I48.0 Paroxysmal atrial fibrillation (principal)
CPT/HCPCS: 36415; 85610

== ENCOUNTER → 2024-08-14 09:09 | Outpatient (REF) | payer MEDICARE, OTHER, SELFPAY ==
[2024-08-14 12:52] LABS: INR 1.88; PT 21.8 Sec (11.4-14.6)
== END ==
LOC: HWLAB 09:09
PROVIDERS: ATTENDING PHYSICIAN Internal Medicine Cardiovascular Disease; FAMILY PHYSICIAN Internal Medicine
DX: I48.0 Paroxysmal atrial fibrillation (principal)
CPT/HCPCS: 36415; 85610

== ENCOUNTER → 2024-08-18 12:16 | Outpatient (REF) | payer MEDICARE, OTHER, SELFPAY | LOC: RAD 12:16 | PROVIDERS: ATTENDING PHYSICIAN Internal Medicine | DX: R63.4 Abnormal weight loss (principal) | CPT/HCPCS: 74177; Q9967 ==

== ENCOUNTER → 2024-08-21 08:49 | Outpatient (REF) | payer MEDICARE, OTHER, SELFPAY ==
[2024-08-21 13:02] LABS: INR 2.27; PT 25.1 Sec (11.4-14.6)
== END ==
LOC: HWLAB 08:49
PROVIDERS: ATTENDING PHYSICIAN Internal Medicine Cardiovascular Disease; FAMILY PHYSICIAN Internal Medicine
DX: I48.0 Paroxysmal atrial fibrillation (principal)
CPT/HCPCS: 36415; 85610

== ENCOUNTER → 2024-08-28 08:55 | Outpatient (REF) | payer MEDICARE, OTHER, SELFPAY ==
[2024-08-28 13:06] LABS: INR 2.57; PT 27.6 Sec (11.4-14.6)
== END ==
LOC: HWLAB 08:55
PROVIDERS: ATTENDING PHYSICIAN Internal Medicine Cardiovascular Disease; FAMILY PHYSICIAN Internal Medicine
DX: I48.0 Paroxysmal atrial fibrillation (principal)
CPT/HCPCS: 36415; 85610

== ENCOUNTER → 2024-09-04 08:35 | Outpatient (REF) | payer MEDICARE, OTHER, SELFPAY ==
[2024-09-04 09:54] LABS: INR 2.13
== END ==
LOC: HWLAB 08:35
PROVIDERS: ATTENDING PHYSICIAN Internal Medicine Cardiovascular Disease; FAMILY PHYSICIAN Internal Medicine
DX: I48.0 Paroxysmal atrial fibrillation (principal)
CPT/HCPCS: 36415; 85610

== ENCOUNTER → 2024-09-10 08:27 | Outpatient (REF) | payer MEDICARE, OTHER, SELFPAY ==
[2024-09-10 10:19] LABS: INR 2.04; PT 23.5 Sec (11.4-14.6)
== END ==
LOC: HWLAB 08:27
PROVIDERS: ATTENDING PHYSICIAN Internal Medicine Cardiovascular Disease; FAMILY PHYSICIAN Internal Medicine
DX: I48.0 Paroxysmal atrial fibrillation (principal)
CPT/HCPCS: 36415; 85610

== ENCOUNTER → 2024-10-08 08:17 | Outpatient (REF) | payer MEDICARE, OTHER, SELFPAY ==
[2024-10-08 10:00] LABS: INR 1.99; PT 22.7 Sec (11.4-14.6)
== END ==
LOC: HWLAB 08:17
PROVIDERS: ATTENDING PHYSICIAN Internal Medicine Cardiovascular Disease; FAMILY PHYSICIAN Internal Medicine
DX: I48.0 Paroxysmal atrial fibrillation (principal)
CPT/HCPCS: 36415; 85610

== ENCOUNTER → 2024-10-15 09:12 | Outpatient (REF) | payer MEDICARE, OTHER, SELFPAY ==
[2024-10-15 12:29] LABS: INR 2.19; PT 24.8 Sec (11.4-14.6)
== END ==
LOC: HWLAB 09:12
PROVIDERS: ATTENDING PHYSICIAN Internal Medicine Cardiovascular Disease; FAMILY PHYSICIAN Internal Medicine
DX: I48.0 Paroxysmal atrial fibrillation (principal)
CPT/HCPCS: 36415; 85610

== ENCOUNTER → 2024-11-12 08:29 | Outpatient (REF) | payer MEDICARE, OTHER, SELFPAY ==
[2024-11-12 12:30] LABS: % Basophils 0.5 % (0-2); % Eosinophils 3.2 % (0-6); % Immature Granulocytes 0.3 % (0-0.5); % Lymphocytes 28.5 % (20.5-51.1); % Monocytes 6.5 % (1.7-9.3); Absolute Eosinophils 0.2 10^3/uL (0-0.7); Absolute Lymphocytes 1.9 10^3/uL (1.2-3.4); Absolute Monocytes 0.4 10^3/uL (0.1-0.6); Hematocrit 40.2 % (39.0-52.0); Hemoglobin 12.9 g/dL (13.0-18.0); Mean Corp Hgb Conc. 32.1 g/dL (33.0-37.0); Mean Corpuscular Volume 87.4 fL (80.0-94.0); Mean Platelet Volume 10.3 fL (7.4-10.4); Nucleated Red Blood Cells % 0 % (-); Platelet Count 278 10^3/uL (130-400); Red Cell Dist. Width 15.3 % (11.5-14.5); White Blood Cell Count 6.5 10^3/uL (4.8-10.8)
[2024-11-12 12:46] LABS: INR 1.98; PT 22.7 Sec (11.4-14.6)
[2024-11-12 13:21] LABS: ALT (SGPT) 21 U/L (0-50); AST (SGOT) 20 U/L (17-59); Albumin 4.1 g/dl (3.5-5.0); Alkaline Phosphatase 67 U/L (38-126); Blood Urea Nitrogen 20 mg/dl (9-20); Calcium 9.5 mg/dl (8.4-10.2); Carbon Dioxide 23 mmol/L (22-30); Chloride 111 mmol/L (98-107); Glucose 117 mg/dl (70-99); HDL Cholesterol 36 mg/dl; LDL Cholesterol, Calculated 47 mg/dl; Potassium 4.6 mmol/L (3.5-5.1); Sodium 143 mmol/L (135-145); Total Bilirubin 0.6 mg/dl (0.2-1.3); Total Cholesterol 105 mg/dl (50-199); Total Protein 7.3 g/dl (6.3-8.2); Triglyceride 113 mg/dl (10-149); Very Low Density Lipoprotein 22 mg/dl (0-30); eGFR > 60.00
[2024-11-12 13:31] LABS: Glycohemoglobin (HgbA1c) 6.1 % (4.0-5.6)
[2024-11-12 13:39] LABS: Microalbumin, Random Urine 1.9 mg/dl (0.6-1.7); Microalbumin/creatinine Ratio 9.5 mg/g
== END ==
LOC: HWLAB 08:29
PROVIDERS: ATTENDING PHYSICIAN Internal Medicine Cardiovascular Disease; FAMILY PHYSICIAN Internal Medicine
DX: I48.0 Paroxysmal atrial fibrillation (principal); E11.9 Type 2 diabetes mellitus without complications; R53.83 Other fatigue
CPT/HCPCS: 36415; 80053; 80061; 82043; 82570; 83036; 85025; 85610

== ENCOUNTER → 2024-11-19 09:25 | Outpatient (REF) | payer MEDICARE, OTHER, SELFPAY ==
[2024-11-19 12:49] LABS: INR 2.08; PT 23.5 Sec (11.4-14.6)
== END ==
LOC: HWLAB 09:25
PROVIDERS: ATTENDING PHYSICIAN Internal Medicine Cardiovascular Disease; FAMILY PHYSICIAN Internal Medicine
DX: I48.0 Paroxysmal atrial fibrillation (principal)
CPT/HCPCS: 36415; 85610

== ENCOUNTER → 2024-12-17 06:45 | Outpatient (REF) | payer MEDICARE, OTHER, SELFPAY ==
[2024-12-17 10:07] LABS: INR 2.20; PT 24.9 Sec (11.4-14.6)
== END ==
LOC: HWLAB 06:45
PROVIDERS: ATTENDING PHYSICIAN Internal Medicine Cardiovascular Disease; FAMILY PHYSICIAN Internal Medicine
DX: I48.0 Paroxysmal atrial fibrillation (principal)
CPT/HCPCS: 36415; 85610

== ENCOUNTER → 2025-01-14 07:09 | Outpatient (REF) | payer MEDICARE, OTHER, SELFPAY ==
[2025-01-14 09:51] LABS: INR 2.35; PT 26.1 Sec (11.4-14.6)
== END ==
LOC: HWLAB 07:09
PROVIDERS: ATTENDING PHYSICIAN Internal Medicine Cardiovascular Disease; FAMILY PHYSICIAN Internal Medicine
DX: I48.0 Paroxysmal atrial fibrillation (principal)
CPT/HCPCS: 36415; 85610

== ENCOUNTER 2025-02-03 12:34 | Emergency (ER) | payer MEDICARE, OTHER, SELFPAY ==
[2025-02-03 12:41] VITALS: BP 125/48; BMI 31.5
[2025-02-03 12:43] VITALS: BP 125/48
--- NOTE | 2025-02-03 12:49 | ED.GENMED ---
History of Present Illness
General
Chief Complaint: Fainting Sensation
Time Seen by Provider: 02/03/25 12:36
History of Present Illness
History of Present Illness:
74-year-old male history of atrial fibrillation on warfarin, CAD, hypertension, hyperlipidemia, diabetes presenting with near syncopal episode. Patient states that he woke up this morning feeling 'tired', took all of his medications but did not eat
which is uncommon for him. Patient states that he works at [employer] where he started feeling dizzy with a frontal headache. Patient states that customer took note that patient did not look well prompting ED evaluation. Patient denies numbness,
weakness, tingling, chest pain or shortness of breath. Patient states last INR was checked on Monday 01/29 and believes it was within normal limits. Patient denies any black or bloody stools. On arrival patient had a bowel movement states he feels
significantly better. Pt denies history of similar headaches, states it was gradual in onset, not maximal intensity within the first hour.
Past History
Past History
ED Past Medical History: Arrthythmia (Atrial fibrillation, has been ablated.), CAD, Cancer (Skin cancer), GERD, HTN, Hypercholesterolemia, NIDDM, [place] and Other (Diverticulosis, diverticulitis, skin cancer)
ED Past Surgical History: Bowel resection (Sigmoid resection), Cardiac, Cholecystectomy, Orthopedic (Lateral knee arthroscopies, and multiple skin cancer lesions removed) and Other (2 hernia procedures)
Social History
Tobacco: Non-smoker
Alcohol: Occasional
Drug: None
Personal:
Living: with family
Employment: Employed
Family History
Family History: Other (Noncontributory)
Phy Exam
Physical Exam
Physical Exam:
General: Alert, no acute distress
Head: NCAT
Eyes: clear conjunctiva, PERRLA, EOMI
Neck: supple
Cardiac: regular rate and rhythm, no murmur
Lungs: clear to auscultation bilaterally. No wheezes, rales, or rhonchi. Speaking full unlabored sentences. No respiratory distress.
Abdomen: soft, nondistended nontender. No rebound or guarding.
MSK: no lower extremity edema bilaterally. No deformity
Skin: warm, dry
Neuro: Alert and oriented x3. Cranial nerves II through XII grossly intact no focal deficits. Normal finger-nose. 5-5 strength bilateral upper and lower extremities. Sensation intact throughout. Ambulatory steady gait.
Course
Orders/Labs/Results
Orders:
Orders
02/03/25 12:38
Electrocardiogram (*1) Urgent
Reason for Study: Syncope
EKG- Treatment ONCE
02/03/25 12:48
CT Head W/o Iv Contrast Urgent
Comment:
Reason For Exam: headache, on warfarin
02/03/25 12:51
CMP [Comprehensive Metabolic Panel] Urgent
Complete Blood Count/With Diff Urgent
Protime/PTT Urgent
Troponin I Urgent
Abnormal Lab Results
02/03/25
12:51
RBC 4.17 L 10^6/uL
(4.70-6.10)
Hgb 11.2 L g/dL
(13.0-18.0)
Hct 36.1 L %
(39.0-52.0)
MCH 26.9 L pg
(27.0-31.0)
MCHC 31.0 L g/dL
(33.0-37.0)
RDW 15.0 H %
(11.5-14.5)
Neutrophils % 76.5 H %
(42.2-75.2)
Lymphocytes % 15.8 L %
(20.5-51.1)
PT 26.3 H Sec
(11.4-14.6)
APTT 46.7 H Sec
(23.4-35.0)
BUN 22 H mg/dl
(9-20)
Creatinine 1.4 H mg/dL
(0.7-1.3)
Glucose 152 H mg/dl
(70-99)
02/03/25 12:51
02/03/25 12:51
Vital Signs
Initial and Last Documented VS:
Initial Vital Signs
Temp Pulse Resp BP Pulse Ox
98.2 F 70 16 125/48 99
02/03/25 12:41 02/03/25 12:41 02/03/25 12:41 02/03/25 12:41 02/03/25 12:41
Last Documented Vital Signs
Temp Pulse Resp BP Pulse Ox
98.2 F 64 20 112/79 97
02/03/25 12:41 02/03/25 14:45 02/03/25 14:45 02/03/25 14:00 02/03/25 14:45
MDM/Problems Addressed
Differential Diagnosis Includes:
Intracranial hemorrhage, anemia, ROHIT, electrolyte abnormality, vasovagal
MDM/Problems Addressed:
Results reviewed. Hemoglobin 11.2, baseline. INR therapeutic at 2.36. Creatinine 1.4 which is baseline. Troponin within normal limits. CT head shows There are moderate changes of cortical atrophy and chronic ischemic disease as read by
radiology.
On reevaluation, patient states he feels a lot better than when he was at work. Per EMS, patient had reportedly a heart rate in the 40s, blood pressure in the 90s systolic. ?vasovagal. Discussed results with patient at bedside. Given normal HR and
BP here with improvement in symptoms and unremarkable workup, stable for discharge home with PCP follow up
*Pulse Oximetry
Patient hypoxic: no
*EKG
Interpreted by ED Provider?: Yes (EKG shows normal sinus rhythm at 74 bpm with MI 250 QTc 468, frequent PVCs, no acute ischemic changes)
*Critical Care Note
Total Time (30-74mins, 75-104mins- exclusive of procedures): Not Applicable
ED Attending Note
-
Portions of this chart may have been created with voice recognition software.� Occasional wrong word or��sound alike� substitutions may have occurred due to the inherent limitations of voice recognition software.
Discharge Plan
Departure
Patient Disposition: Home (Routine Discharge)
Date of Disposition: 02/03/25
Time of Disposition: 15:04
Patient with high blood pressure during this ER visit?: No
Discharge Problem:
Dizziness
Prescriptions:
No Action
latanoprost 1 DROP drops
1 drp BOTH EYES HS
finasteride 5 MG tablet
5 mg PO DAILY
metformin 500 MG tablet
500 mg PO BID Qty: 0 0RF
tamsulosin 0.4 mg Capsule
0.4 mg PO QPM
atorvastatin 40 mg Tablet
40 mg PO QPM Qty: 30 2RF
dorzolamide-timolol 22.3-6.8 mg/mL drops
1 drp LEFT EYE BID
diltiazem HCl [Matzim LA] 180 mg Tablet Extended Release 24 Hr
180 mg PO DAILY
acetaminophen 325 mg Tablet
650 mg PO Q6HPRN PRN (Reason: mild pain) Qty: 20 0RF
warfarin 3 mg Tablet
3 mg PO .DAILYQMONTUEWEDTHUR
warfarin 1 mg Tablet
1.5 mg PO .DAILYQFRISATSUN
escitalopram oxalate 10 mg Tablet
10 mg PO DAILY
cyclobenzaprine 5 mg tablet
5 mg PO BID PRN (Reason: MUSCLE SPASM) Qty: 7 0RF
Referrals:
UNKNOWN - PT DOES,NOT KNOW [Family Provider]
Activity Restrictions/Additional Instructions:
Take Tylenol 975 mg every 6 hours as needed for headache
Follow-up with primary care doctor in 1 to 2 days
Return to Emergency Department for numbness, weakness, tingling, chest pain, passing out or new/worsening symptoms
Interventions
Interventions:
*Risk Screen - Suicide Last Done: 02/03/25 12:41
*General Assessment Last Done: 02/03/25 12:41
*Neglect/Abuse Screening Last Done: 02/03/25 12:41
*ED COVID-19 Vaccine History Last Done: 02/03/25 12:41
ED- Cardiac Assessment Last Done: 02/03/25 14:23
ED- Neurological Assessment Last Done: 02/03/25 14:23
Discharge Date and Time
Print Language: SYRIAN
[2025-02-03 13:00] VITALS: BP 115/58
[2025-02-03 13:03] LABS: Hematocrit 36.1 % (39.0-52.0); Hemoglobin 11.2 g/dL (13.0-18.0); Mean Corp Hgb Conc. 31.0 g/dL (33.0-37.0); Mean Corpuscular Volume 86.6 fL (80.0-94.0); Nucleated Red Blood Cells % 0 % (-); Platelet Count 270 10^3/uL (130-400); Red Cell Dist. Width 15.0 % (11.5-14.5)
[2025-02-03 13:14] LABS: INR 2.36; PT 26.3 Sec (11.4-14.6)
[2025-02-03 13:15] LABS: ALT (SGPT) 16 U/L (0-50); APTT 46.7 Sec (23.4-35.0); AST (SGOT) 18 U/L (17-59); Albumin 3.9 g/dl (3.5-5.0); Alkaline Phosphatase 61 U/L (38-126); Blood Urea Nitrogen 22 mg/dl (9-20); Calcium 9.0 mg/dl (8.4-10.2); Carbon Dioxide 22 mmol/L (22-30); Chloride 106 mmol/L (98-107); Estimated Creatinine Clearance 55 ml/min; Glucose 152 mg/dl (70-99); Potassium 4.1 mmol/L (3.5-5.1); Sodium 138 mmol/L (135-145); Total Protein 7.0 g/dl (6.3-8.2); eGFR 52.74
[2025-02-03 13:26] LABS: Troponin I < 0.012 ng/ml
[2025-02-03 14:00] VITALS: BP 112/79
[2025-02-03 14:45] VITALS: BP 131/63
[2025-02-03 15:00] VITALS: BP 127/64
== END 2025-02-03 16:01 | disposition home or self-care (01) ==
LOC: EMR 12:34
PROVIDERS: EMERGENCY PHYSICIAN Emergency Medicine
DX: R42 Dizziness and giddiness (principal); I49.3 Ventricular premature depolarization; E11.9 Type 2 diabetes mellitus without complications; I25.10 Atherosclerotic heart disease of native coronary artery without angina pectoris; I48.91 Unspecified atrial fibrillation; I10 Essential (primary) hypertension; E78.00 Pure hypercholesterolemia, unspecified; I25.2 Old myocardial infarction; K21.9 Gastro-esophageal reflux disease without esophagitis; Z79.01 Long term (current) use of anticoagulants; Z79.84 Long term (current) use of oral hypoglycemic drugs; Z85.828 Personal history of other malignant neoplasm of skin
CPT/HCPCS: 99284; 70450; 80053; 84484; 85025; 85610; 85730; 93005

== ENCOUNTER → 2025-02-11 07:10 | Outpatient (REF) | payer MEDICARE, OTHER, SELFPAY ==
[2025-02-11 10:21] LABS: INR 2.09; PT 24.0 Sec (11.4-14.6)
== END ==
LOC: HWLAB 07:10
PROVIDERS: ATTENDING PHYSICIAN Internal Medicine Cardiovascular Disease; FAMILY PHYSICIAN Internal Medicine
DX: I48.0 Paroxysmal atrial fibrillation (principal)
CPT/HCPCS: 36415; 85610

== ENCOUNTER → 2025-02-25 13:41 | Outpatient (REF) | payer MEDICARE, OTHER, SELFPAY | LOC: HWRCS 13:41 | PROVIDERS: ATTENDING PHYSICIAN Internal Medicine Cardiovascular Disease; FAMILY PHYSICIAN Internal Medicine | DX: R42 Dizziness and giddiness (principal) | CPT/HCPCS: 93306 ==

== ENCOUNTER → 2025-03-11 08:08 | Outpatient (REF) | payer MEDICARE, OTHER, SELFPAY ==
[2025-03-11 11:33] LABS: INR 1.96; PT 22.8 Sec (11.4-14.6)
== END ==
LOC: HWLAB 08:08
PROVIDERS: ATTENDING PHYSICIAN Internal Medicine Cardiovascular Disease; FAMILY PHYSICIAN Internal Medicine
DX: I48.0 Paroxysmal atrial fibrillation (principal)
CPT/HCPCS: 36415; 85610

== ENCOUNTER → 2025-03-17 07:19 | Outpatient (REF) | payer MEDICARE, OTHER, SELFPAY ==
[2025-03-17 09:47] LABS: INR 1.64; PT 19.9 Sec (11.4-14.6)
== END ==
LOC: HWLAB 07:19
PROVIDERS: ATTENDING PHYSICIAN Internal Medicine Cardiovascular Disease; FAMILY PHYSICIAN Internal Medicine
DX: I48.0 Paroxysmal atrial fibrillation (principal)
CPT/HCPCS: 36415; 85610

== ENCOUNTER → 2025-03-24 07:03 | Outpatient (REF) | payer MEDICARE, OTHER, SELFPAY ==
[2025-03-24 08:37] LABS: INR 1.98; PT 23.0 Sec (11.4-14.6)
== END ==
LOC: HWLAB 07:03
PROVIDERS: ATTENDING PHYSICIAN Internal Medicine Cardiovascular Disease; FAMILY PHYSICIAN Internal Medicine
DX: I48.0 Paroxysmal atrial fibrillation (principal)
CPT/HCPCS: 36415; 85610

== ENCOUNTER → 2025-03-31 07:11 | Outpatient (REF) | payer MEDICARE, OTHER, SELFPAY ==
[2025-03-31 10:28] LABS: INR 2.37; PT 26.3 Sec (11.4-14.6)
== END ==
LOC: HWLAB 07:11
PROVIDERS: ATTENDING PHYSICIAN Internal Medicine Cardiovascular Disease; FAMILY PHYSICIAN Internal Medicine
DX: I48.0 Paroxysmal atrial fibrillation (principal)
CPT/HCPCS: 36415; 85610

== ENCOUNTER → 2025-04-07 07:07 | Outpatient (REF) | payer MEDICARE, OTHER, SELFPAY ==
[2025-04-07 09:40] LABS: INR 2.08; PT 23.9 Sec (11.4-14.6)
== END ==
LOC: HWLAB 07:07
PROVIDERS: ATTENDING PHYSICIAN Internal Medicine Cardiovascular Disease; FAMILY PHYSICIAN Internal Medicine
DX: I48.0 Paroxysmal atrial fibrillation (principal)
CPT/HCPCS: 36415; 85610

== ENCOUNTER → 2025-04-14 06:47 | Outpatient (REF) | payer MEDICARE, OTHER, SELFPAY ==
[2025-04-14 10:03] LABS: INR 2.22; PT 25.1 Sec (11.4-14.6)
== END ==
LOC: HWLAB 06:47
PROVIDERS: ATTENDING PHYSICIAN Internal Medicine Cardiovascular Disease; FAMILY PHYSICIAN Internal Medicine
DX: I48.0 Paroxysmal atrial fibrillation (principal)
CPT/HCPCS: 36415; 85610

== ENCOUNTER → 2025-04-21 06:26 | Outpatient (REF) | payer MEDICARE, OTHER, SELFPAY ==
[2025-04-21 07:59] LABS: INR 2.15; PT 24.5 Sec (11.4-14.6)
== END ==
LOC: REG 06:26
PROVIDERS: ATTENDING PHYSICIAN Internal Medicine Cardiovascular Disease; FAMILY PHYSICIAN Internal Medicine
DX: I48.0 Paroxysmal atrial fibrillation (principal)
CPT/HCPCS: 36415; 85610

== ENCOUNTER → 2025-05-18 06:34 | Outpatient (REF) | payer MEDICARE, OTHER, SELFPAY ==
[2025-05-18 09:58] LABS: Hematocrit 38.0 % (39.0-52.0); Hemoglobin 12.4 g/dL (13.0-18.0); Mean Corp Hgb Conc. 32.6 g/dL (33.0-37.0); Mean Corpuscular Volume 84.4 fL (80.0-94.0); Nucleated Red Blood Cells % 0 % (-); Platelet Count 338 10^3/uL (130-400); Red Cell Dist. Width 15.0 % (11.5-14.5)
[2025-05-18 10:09] LABS: INR 2.60; PT 28.1 Sec (11.4-14.6)
[2025-05-18 10:17] LABS: ALT (SGPT) 15 U/L (0-50); AST (SGOT) 21 U/L (17-59); Albumin 4.0 g/dl (3.5-5.0); Alkaline Phosphatase 76 U/L (38-126); Blood Urea Nitrogen 23 mg/dl (9-20); Calcium 8.9 mg/dl (8.4-10.2); Carbon Dioxide 23 mmol/L (22-30); Chloride 103 mmol/L (98-107); Glucose 116 mg/dl (70-99); HDL Cholesterol 43 mg/dl; LDL Cholesterol, Calculated 53 mg/dl; Potassium 4.4 mmol/L (3.5-5.1); Sodium 137 mmol/L (135-145); Total Protein 7.4 g/dl (6.3-8.2); Very Low Density Lipoprotein 16 mg/dl (0-30); eGFR > 60.00
[2025-05-18 11:04] LABS: Microalbumin, Random Urine 1.6 mg/dl (0.6-1.7)
[2025-05-18 11:20] LABS: Glycohemoglobin (HgbA1c) 6.4 % (4.0-5.9)
== END ==
LOC: HWLAB 06:34
PROVIDERS: ATTENDING PHYSICIAN Internal Medicine Cardiovascular Disease; FAMILY PHYSICIAN Internal Medicine
DX: E11.9 Type 2 diabetes mellitus without complications (principal); R53.83 Other fatigue; I48.0 Paroxysmal atrial fibrillation
CPT/HCPCS: 36415; 80053; 80061; 82043; 82570; 83036; 85025; 85610